=== PATIENT | male | born 1960 | race African-American/Black ===

== ENCOUNTER 2016-11-06 15:48 | Inpatient (IN) | payer OTHER ==
[~2016-11-06] VITALS: Ht 180.3 cm; Wt 76.2 kg
[2016-11-06] VITALS: BP 140/84
[~2016-11-06 15:48] MED LIST: ACETAMINOPHEN-1 EAC1 ORAL; ALBUTEROL SULF8.5 GM INH; HYDROCHLOROTHIA25 MG ORAL; LOSARTAN POTASS50 MG ORAL; METFORMIN HCL1000 M1 ORAL; METOPROLOL TAR100 MG ORAL; METOPROLOL TART50 MG ORAL; MIRALAX17 GM ORAL; NORCO 5-325 TA1 EACH ORAL; PREDNISONE20 MG ORAL; PROMETHAZINE-C118 M1 ORAL; STARLIX120 MG ORAL; STARLIX60 MG ORAL
[2016-11-06] MEDS: Morphine Sulfate 4mg/ml Inj IVP ONE ×3 (16:47→17:40)
[2016-11-06 18:09] VITALS: BP 140/91
[2016-11-06] MEDS ORDERED: Morphine Sulfate 4mg/ml Inj IM ONE (18:30)
[2016-11-06 20:14] VITALS: BP 141/80
[2016-11-06] MEDS ORDERED: Miralax 17gm pkt ORAL PRN (21:15)
[2016-11-06] MEDS ORDERED: Nitroglycerin Subl 0.4mg tab (Bottle Of 25) SL PRN (21:15)
[2016-11-06] MEDS ORDERED: Mylanta II UD 30ml ORAL PRN (21:15)
[2016-11-06 21:52] VITALS: BP 136/86
[2016-11-06] MEDS: D5 1/2NS 1,000 ML IV SCH (22:00)
[2016-11-06] MEDS: Heparin 5000 units/ml inj SUBQ SCH (22:00)
--- NOTE | 2016-11-06 22:28 | Emergency Room Report ---
History of Present Illness General Chief Complaint: Sore Throat Source: Patient, Family Member Present Illness HPI 56-year-old male presents ED for evaluation. Patient states he had endoscopy done today at [facility]. Patient states he's having a lot of throat pain since the endoscopy. Family at bedside states that patient had a very narrow esophagus required dilation. Pain is sharp. 10 out of 10. Radiating down the esophagus. Worse with swallowing. Denies chest pain or shortness of breath. Denies fevers or chills. Dr. Sexton performed the endoscopy today. No other aggravating or relieving factors. Denies any other associated symptoms Allergies: Coded Allergies: No Known Allergies (Unverified , 06/17/14) Patient History Past Medical History: DM, HTN, CVA/TIA Past Surgical History: other - gtube Pertinent Family History: none Social History: Denies: alcohol use, drug use, smoking Immunizations: UTD Reviewed Nursing Documentation: PMH: Agreed, PSxH: Agreed Nursing Documentation-PMH Hx Hypertension: Yes Hx Asthma: Yes Hx Diabetes: Yes Hx Cancer: No Hx Gastrointestinal Problems: Yes - Appendectomy in November 2014 Hx Neurological Problems: No Review of Systems All Other Systems: negative except mentioned in HPI Physical Exam Vital Signs Date Time Temp Pulse Resp B/P Pulse Ox O2 Delivery O2 Flow Rate FiO2 11/06/ 15:42 98.1 94 18 162/100 95 Room Air Sp02 EP Interpretation: reviewed, normal General Appearance: no apparent distress, alert, GCS 15, non-toxic, thin Head: normocephalic Eyes: bilateral eye PERRL, bilateral eye normal inspection ENT: hearing grossly normal, normal pharynx, no angioedema, normal voice Neck: full range of motion, supple/symm/no masses Respiratory: chest non-tender, lungs clear, normal breath sounds, speaking full sentences Cardiovascular #1: regular rate, rhythm, no edema Gastrointestinal: normal bowel sounds, non tender, soft, non-distended, no guarding, no rebound, other - Gtube Rectal: deferred Genitourinary: no CVA tenderness Musculoskeletal: normal inspection Neurologic: alert, oriented x3, responsive, motor strength/tone normal, sensory intact, speech normal Psychiatric: normal inspection Skin: normal inspection Lymphatic: normal inspection Medical Decision Making Diagnostic Impression: Primary Impression: S/P endoscopy Additional Impressions: Dysphagia Qualified Codes: R13.10 - Dysphagia, unspecified Weakness ER Course 56-year-old male presents ED complaining of throat pain after endoscopy today Differential-esophagitis, postoperative pain, perforation Patient placed on stretcher. After initial history and physical I ordered labs , pain medications, IV fluids, CT chest and esophagram Patient was unable to tolerate swallowing for esophagram. Study could not be completed CT chest shows no evidence of perforation I discussed case with Dr. Sexton performed the endoscopy today. States that there were several strictures which he had to dilate. Patient has history of CVA and has a G-tube in place. Discussed case with family requested patient to be admitted for IV fluids. patient is unable to tolerate by mouth intake for several days and feels very weak. Patient is very difficult IV access. I placed a peripheral EJ line. Patient is refusing blood draw after multiple previous attempts made. Patient given IV fluids. Case discussed with Dr. otero who has seen patient in the past and agrees to consult Case discussed with Dr. Corea and he agreed to admit the patient to his service for further care and support Diagnoses-status post endoscopy, dysphagia, weakness Admitted to floor in serious condition CT/MRI/US Diagnostic Results CT/MRI/US Diagnostic Results : Imaging Test Ordered: CT Chest Impression no evidence of perforation or extravasation Last Vital Signs Date Time Temp Pulse Resp B/P Pulse Ox O2 Delivery O2 Flow Rate FiO2 11/06/16 21:52 98.2 100 20 136/86 97 Room Air Status: improved Disposition: ADMITTED INPATIENT Condition: Serious Referrals: [facility],REFERRING (PCP) SUSAN HUMPHRIES M.D. Nov 06, 2016 22:28
[2016-11-06 22:45] LABS: APPEARANCE,URINE SLIGHTLY CLOUDY; KETONES,URINE 4+ (NEGATIVE); LEUKOCYTE ESTERASE ,URINE 1+ (NEGATIVE); NITRITE,URINE NEGATIVE (NEGATIVE); PH,URINE 5 (4.5-8.0); PROTEIN,URINE 3+ (NEGATIVE); UROBILINOGEN,URINE 4 MG/DL (0.0-1.0)
[2016-11-06 23:18] LABS: AMORPHOUS SEDIMENT,UR MODERATE /LPF; BACTERIA,URINE MODERATE /HPF; ICTOTEST NEGATIVE; RBC,URINE 0-2 /HPF (0 - 0)
[2016-11-07] VITALS: BP 140/84
[2016-11-07] MEDS: Morphine Sulfate 2mg/ml Inj IVP PRN ×3 (00:18→10:20)
[2016-11-07 04:00] VITALS: BP 131/72
[2016-11-07] MEDS: NovoLOG Insulin Flexpen SUBQ SCH ×4 (06:30→21:00)
[2016-11-07 08:00] VITALS: BP 144/98
[2016-11-07] MEDS: D5 1/2NS 1,000 ML IV SCH ×2 (09:27→21:40)
[2016-11-07] MEDS: Heparin 5000 units/ml inj SUBQ SCH ×2 (09:27→21:00)
--- NOTE | 2016-11-07 10:25 | Diagnostic Imaging Report ---
Clinical Indication: PAIN, chest pain status post esophageal dilatation Technique: Spiral acquisitions obtained through the chest. No IV contrast utilized, referring physician request. Multiplanar reconstructions generated. Total dose length product 576 mGycm. CTDIvol(s) 12 mGy. Dose reduction achieved using automated exposure control Comparison: None Findings:There is a small amount of residual contrast in the esophagus from earlier esophagram. There is no evidence of contrast extravasation. However, air bubbles are seen within the mediastinum,, surrounding the esophagus but also more anteriorly adjacent to the superior vena cava and laterally adjacent to the inferior vena cava.. This is predominantly in the lower mediastinum. No extraluminal fluid collection or other findings to suggest abscess are demonstrated. There is thickening of the distal esophageal wall. There is also suggestion of a small sliding-type hiatal hernia. No mediastinal hilar mass or adenopathy. Normal heart size. There is a small pericardial effusion. Within the lingula, there are a few bronchiectatic bronchi, surrounded by some bronchial wall thickening and reticular opacities. Patchy groundglass opacities seen more inferiorly within the lingula. Scattered reticular and groundglass opacities are seen throughout the left lower lobe, predominantly near the base. The right is clear. Pleural spaces are clear. No axillary or chest wall mass or adenopathy. The thyroid is unremarkable. Limited images of the upper abdomen demonstrate a gastrostomy. Contrast from the earlier esophagram seen within the stomach. There is also dense contrast within the colon, presumably from an earlier outside study. The bones are unremarkable. Impression: Gas bubbles within the mediastinum, presumably indicates esophageal perforation secondary to recent esophageal endoscopic dilatation. However, there is no evidence of contrast extravasation from recent esophagram and no abnormal fluid collection or other findings to suggest abscess. Parenchymal opacities within the left lung, as described. Bronchiectasis in the lingula indicates likely chronic component. Reticulonodular and groundglass opacities are nonspecific, could indicate acute infectious or noninfectious inflammation, acute edema, or chronic postinflammatory changes. Correlation with clinical findings recommended The above findings represent a discrepancy from the preliminary report. Discrepant findings phoned to Dr. Corea at the time of interpretation Distal esophageal wall thickening and hiatal hernia, nonspecific, could indicate esophagitis, inflammation related to recent intervention, among other possibilities Small hiatal hernia Gastrostomy The CT scanner at [facility] is accredited by the [employer] and the scans are performed using protocols designed to limit radiation exposure to as low as reasonably achievable to attain images of sufficient resolution adequate for diagnostic evaluation.
--- NOTE | 2016-11-07 11:50 | Diagnostic Imaging Report ---
Indication: Abdominal pain Technique: Bagley-scale and duplex images of the upper abdomen were obtained Comparison: Reference made to abdomen pelvis CT 11/30/2014 Findings: . Gallbladder is unremarkable, without stones, wall thickening, nor pericholecystic fluid. Sonographic Browning's sign is negative. Common bile duct measures 6 mm in diameter. No intrahepatic biliary ductal dilatation. Liver demonstrates normal echogenicity, no focal abnormality. Portal vein and hepatic veins are patent.. Pancreas is unremarkable except for mild ectasia of the pancreatic duct. Spleen is unremarkable. Left kidney measures 11.1 cm in length. Right kidney measures 9.7 cm length. Both kidneys demonstrate normal echogenicity. There is no hydronephrosis. No focal abnormality. . Non-aneurysmal abdominal aorta. Impression: Essentially unremarkable exam. Negative for gallstones or dilated ducts Nonspecific mild ectasia of the pancreatic duct, significance uncertain
[2016-11-07 12:02] VITALS: BP 162/93
[2016-11-07] MEDS ORDERED: Heparin 2000 units/Ns 1000ml INJ ONE (12:30)
[2016-11-07] MEDS ORDERED: Lidocaine 1% Plain 30 ml INJ ONE (12:30)
--- NOTE | 2016-11-07 12:30 | Diagnostic Imaging Report ---
Indication: PAIN, status post esophageal dilatation Technique: Rapid sequence photospot images during ingestion of water soluble contrast Total fluoroscopy time 0.9 minutes. Total dose area product 298 dGycm2 Comparison: None Findings: Exam is very limited, as only single image fired prepping the first swallow, and second swallow was mistimed. Patient did not wish to ingest any further contrast. No gross contrast extravasation is evident. There is a small sliding-type hiatal hernia Impression: Limited, essentially nondiagnostic exam.
[2016-11-07] MEDS ORDERED: Morphine Sulfate 4mg/ml Inj IVP PRN ×2 (13:15→18:00)
[2016-11-07] MEDS ORDERED: Sodium Bicarbonate 8.4% 50ml Inj IV ONE (15:00)
--- NOTE | 2016-11-07 15:56 | History and Physical ---
History of Present Illness General Date patient seen: Nov 07, 2016 Reason for Hospitalization: Sore Throat Present Illness HPI 56-year-old male with esophageal restrictions presented to ED for evaluation because of possible esophageal perforation Patient states he's having a lot of throat pain since the endoscopy the day prior. Family at bedside states that patient had a very narrow esophagus required dilation. Pain is sharp. 10 out of 10. Radiating down the esophagus. Pt is admitted for further evaluation Allergies: Coded Allergies: No Known Allergies (Unverified , 06/17/14) Medication History Scheduled Hydrochlorothiazide* (Hydrochlorothiazide*), 25 MG ORAL DAILY, (Reported) Losartan Potassium* (Losartan Potassium*), 50 MG ORAL DAILY, (Reported) Metformin Hcl* (Metformin Hcl*), 1,000 MG ORAL EVERY 2 HOURS, (Reported) Discontinued Medications Acetaminophen With Codeine (T#3) (Tylenol #3 Tab*), 1 TAB ORAL Q4H PRN for For Pain Discontinued Reason: Therapy completed Albuterol Sulfate* (Albuterol Sulfate Mdi*), 2 PUFF INH Q4H PRN for cough/ wheezing Discontinued Reason: Therapy completed Albuterol Sulfate* (Albuterol Sulfate Mdi*), 2 PUFF INH Q3H Discontinued Reason: Therapy completed Codeine/Promethazine Hcl* (Promethazine-Codeine Syrup*), 5 ML ORAL Q6H PRN for For Cough Discontinued Reason: Therapy completed Hydrochlorothiazide* (Hydrochlorothiazide*), 25 MG ORAL DAILY Discontinued Reason: Therapy completed Losartan Potassium* (Losartan Potassium*), 50 MG ORAL DAILY Discontinued Reason: Therapy completed Metoprolol Tartrate* (Metoprolol Tartrate*), 75 MG ORAL Q12HR Discontinued Reason: Therapy completed Metoprolol Tartrate* (Metoprolol Tartrate*), 200 MG ORAL EVERY 12 HOURS Discontinued Reason: Therapy completed Nateglinide (Starlix), 60 MG ORAL TIAC Discontinued Reason: Therapy completed Nateglinide* (Starlix*), 60 MG ORAL THREE TIMES A DAY Discontinued Reason: Therapy completed Prednisone* (Prednisone*), 40 MG ORAL DAILY Discontinued Reason: Therapy completed Patient History Healthcare decision maker NONE Resuscitation status Full Code Advanced Directive on File Past Medical/Surgical History Past Medical/Surgical History: (1) S/P endoscopy (2) HTN (hypertension) (3) Diabetes mellitus Review of Systems All Other Systems: negative except mentioned in HPI Physical Exam General Appearance: WD/WN Lines, tubes and drains: peripheral HEENT: normocephalic Neck: non-tender Respiratory/Chest: chest wall non-tender Cardiovascular/Chest: normal peripheral pulses Abdomen: normal bowel sounds Genitourinary/Rectal: normal genital exam Extremities: normal range of motion Skin Exam: normal pigmentation Last 24 Hour Vital Signs Date Time Temp Pulse Resp B/P Pulse Ox O2 Delivery O2 Flow Rate FiO2 11/07/16 12:02 97.8 96 18 162/93 97 Room Air 11/07/16 08:00 97.0 104 18 144/98 93 Room Air 11/07/16 06:57 96.9 11/07/16 04:00 96.9 89 16 131/72 97 Room Air 11/07/16 00:00 97.7 100 19 140/84 93 Room Air 11/06/16 21:53 98.2 100 20 136/86 97 Room Air 11/06/16 21:52 98.2 100 20 136/86 97 Room Air 11/06/16 20:14 98.2 100 20 141/80 97 Room Air 11/06/16 18:09 109 20 140/91 97 Room Air Intake and Output 11/06/16 11/07/16 19:00 07:00 Intake Total 0 ml 1100 ml Output Total 125 ml Balance 0 ml 975 ml Intake Oral 0 ml IV Total 1100 ml Output Urine Total 125 ml # Voids 1 # Bowel Movements 1 Laboratory Tests Test 11/06/16 22:15 Urine Color Brown Urine Appearance Slightly cloudy Urine pH 5 (4.5-8.0) Urine Specific [place] 1.025 (1.005-1.035) Urine Protein 3+ (NEGATIVE) H Urine Glucose (UA) Negative (NEGATIVE) Urine Ketones 4+ (NEGATIVE) H Urine Occult Blood Negative (NEGATIVE) Urine Nitrite Negative (NEGATIVE) Urine Bilirubin 2+ (NEGATIVE) H Urine Ictotest Negative Urine Urobilinogen 4 MG/DL (0.0-1.0) H Urine Leukocyte Esterase 1+ (NEGATIVE) H Urine RBC 0-2 /HPF (0 - 0) H Urine WBC 2-4 /HPF (0 - 0) Urine Squamous Epithelial Cells None /LPF (NONE/OCC) Urine Amorphous Sediment Moderate /LPF (NONE) H Urine Bacteria Moderate /HPF (NONE) H Height (Feet): 5 Height (Inches): 11.00 Weight (Pounds): 168 Medications Current Medications Medications (Trade) Dose Ordered Sig/Eda Route PRN Reason Start Time Stop Time Status Last Admin Dose Admin Acetaminophen (Tylenol) 650 mg Q4H PRN ORAL fever 11/06/16 21:15 12/06/16 21:14 Al Hydroxide/Mg Hydroxide (Mylanta II) 30 ml Q6H PRN ORAL dyspepsia 11/06/16 21:15 12/06/16 21:14 Dextrose (Dextrose 50%) STAT PRN IV Hypoglycemia 11/06/16 21:15 12/06/16 21:14 Dextrose/Sodium Chloride (D5 0.45% NS) 1,000 ml @ 75 mls/hr [id number] IV 11/06/16 22:00 12/06/16 21:59 11/07/16 09:27 Diphenhydramine HCl (Benadryl) 25 mg Q6H PRN ORAL Itching/Pruritis 11/06/16 21:15 12/06/16 21:14 Heparin Sodium (Porcine) (Heparin 5000 units/ml) 5,000 units EVERY 12 HOURS SUBQ 11/06/16 22:00 12/06/16 21:59 11/07/16 09:27 Insulin Aspart (NovoLOG) BEFORE MEALS AND HS SUBQ 11/07/16 06:30 12/07/16 06:29 Morphine Sulfate (Morphine Sulfate) 4 mg Q3H PRN IVP severe Pain (Pain Scale 7-10) 11/07/16 18:00 11/14/16 17:59 Nitroglycerin (Ntg) 0.4 mg Q5M X 3 DOSES PRN SL Prn Chest Pain 11/06/16 21:15 12/06/16 21:14 Ondansetron HCl (Zofran) 4 mg Q6H PRN IVP Nausea & Vomiting 11/06/16 21:15 12/06/16 21:14 11/07/16 09:26 Polyethylene Glycol (Miralax) 17 gm HSPRN PRN ORAL Constipation 11/06/16 21:15 12/06/16 21:14 Temazepam (Restoril) 15 mg HSPRN PRN ORAL Insomnia 11/06/16 21:15 11/13/16 21:14 Assessment/Plan Problem List: (1) Esophageal perforation ICD Codes: K22.3 - Perforation of esophagus SNOMED: 19090127 (2) HTN (hypertension) ICD Codes: I10 - Essential (primary) hypertension SNOMED: 18236275 (3) Diabetes mellitus ICD Codes: E11.9 - Type 2 diabetes mellitus without complications SNOMED: 06719688 Assessment/Plan npo f/u by GI symptomatic treatment POLINA CRAWFORD Nov 07, 2016 15:56
--- NOTE | 2016-11-07 16:27 | GI Initial Consult Note ---
History of Present Illness General Date patient seen: Nov 07, 2016 Time patient seen: 16:06 Reason for Hospitalization: Sore Throat Referring physician: POLINA CUENCA Reason for Consultation: VOMITTING Present Illness HPI 56-year-old male presents ED for evaluation. Patient states he had endoscopy done today at [facility]. Patient states he's having a lot of throat pain since the endoscopy. Family at bedside states that patient had a very narrow esophagus required dilation. Pain is sharp. 10 out of 10. Radiating down the esophagus. Worse with swallowing. Denies chest pain or shortness of breath. Denies fevers or chills. Dr. Sexton performed the endoscopy today. No other aggravating or relieving factors. Denies any other associated symptoms GI CONSULT: HPI as noted above. GI consulted for esophageal soreness/pain. Pt seen on floor, c/o of pain 10/ constantly requesting pain medication. This patient GT patient with trach. Strict NPO at this time. APCT revealed possible esophageal perforation from dilation recently. He presents to the floor c/o of persistent pain. Has refused all lab draws and most of care. Home Meds Reported Medications Hydrochlorothiazide* (HYDROCHLOROTHIAZIDE*) 25 Mg Tablet, 25 MG ORAL DAILY, TAB 11/30/14 Losartan Potassium* (LOSARTAN POTASSIUM*) 50 Mg Tablet, 50 MG ORAL DAILY, TAB 11/30/14 Metformin Hcl* (METFORMIN HCL*) 1,000 Mg Tablet, 1000 MG ORAL EVERY 2 HOURS, TAB 11/30/14 Discontinued Scripts Codeine/Promethazine Hcl* (PROMETHAZINE-CODEINE SYRUP*) 118 Ml Syrup, 5 ML ORAL Q6H Y for For Cough, #118 ML Prov:Amber Michel.A. 02/28/16 Albuterol Sulfate* (ALBUTEROL SULFATE MDI*) 8.5 Gm Hfa.aer.ad, 2 PUFF INH Q3H, # 1 INH 0 Refills Prov:Amber Michel P.A. 02/28/16 Prednisone* (PREDNISONE*) 20 Mg Tablet, 40 MG ORAL DAILY for 5 Days, TAB Prov:Amber Michel P.A. 02/28/16 Albuterol Sulfate* (ALBUTEROL SULFATE MDI*) 8.5 Gm Hfa.aer.ad, 2 PUFF INH Q4H Y for cough/wheezing, #1 EA Prov:EMILY COOK P.A. 02/18/15 Acetaminophen With Codeine (T#3) (TYLENOL #3 TAB*) 1 Each Tablet, 1 TAB ORAL Q4H Y for For Pain, #20 TAB Prov:LYUBOV COOKA P.A. 02/18/15 Metoprolol Tartrate* (METOPROLOL TARTRATE*) 100 Mg Tablet, 200 MG ORAL EVERY 12 HOURS, #120 TAB Prov:EMILY COOK P.A. 02/18/15 Nateglinide* (STARLIX*) 60 Mg Tablet, 60 MG ORAL THREE TIMES A DAY, #90 TAB Prov:EMILY COOK P.A. 02/18/15 Hydrochlorothiazide* (HYDROCHLOROTHIAZIDE*) 25 Mg Tablet, 25 MG ORAL DAILY, #30 TAB Prov:EMILY COOK P.A. 02/18/15 Losartan Potassium* (LOSARTAN POTASSIUM*) 50 Mg Tablet, 50 MG ORAL DAILY, #30 TAB Prov:LYUBOV COOKA P.A. 02/18/15 Nateglinide (Starlix) 120 Mg Tab, 60 MG ORAL TIAC, #90 TAB Prov:Edu (Ashley)Bri NP 12/08/14 Metoprolol Tartrate* (METOPROLOL TARTRATE*) 50 Mg Tab, 75 MG ORAL Q12HR, #60 TAB Prov:Bri Sorensen NP (Vanchtein) 12/08/14 Med list reviewed/reconciled: Yes Allergies: Coded Allergies: No Known Allergies (Unverified , 06/17/14) Patient History History Provided By: Patient - refusing to speak PMH Narrative unable to obtain, refusing to speak unless given pain medication Review of Systems All Other Systems: negative except mentioned in HPI Physical Exam Vital Signs Date Time Temp Pulse Resp B/P Pulse Ox O2 Delivery O2 Flow Rate FiO2 11/06/16 15:42 98.1 94 18 162/100 95 Room Air Sp02 EP Interpretation: reviewed Labs Laboratory Tests Test 11/06/16 22:15 Urine Color Brown Urine Appearance Slightly cloudy Urine pH 5 (4.5-8.0) Urine Specific [place] 1.025 (1.005-1.035) Urine Protein 3+ (NEGATIVE) H Urine Glucose (UA) Negative (NEGATIVE) Urine Ketones 4+ (NEGATIVE) H Urine Occult Blood Negative (NEGATIVE) Urine Nitrite Negative (NEGATIVE) Urine Bilirubin 2+ (NEGATIVE) H Urine Ictotest Negative Urine Urobilinogen 4 MG/DL (0.0-1.0) H Urine Leukocyte Esterase 1+ (NEGATIVE) H Urine RBC 0-2 /HPF (0 - 0) H Urine WBC 2-4 /HPF (0 - 0) Urine Squamous Epithelial Cells None /LPF (NONE/OCC) Urine Amorphous Sediment Moderate /LPF (NONE) H Urine Bacteria Moderate /HPF (NONE) H General Appearance: well appearing, no apparent distress, alert, thin Head: normocephalic EENT: normal ENT inspection Neck: full range of motion, supple Respiratory: normal breath sounds, no respiratory distress Cardiovascular: normal rate Gastrointestinal: soft Rectal: deferred Genitourinary: normal inspection Musculoskeletal: normal inspection, back normal Neurologic: normal inspection, alert, oriented x3, responsive Psychiatric: normal inspection, judgement/insight normal, memory normal Skin: normal inspection, normal color, no rash, warm/dry Lymphatic: normal inspection, no adenopathy Current Medications Current Medications Medications (Trade) Dose Ordered Sig/Eda Route PRN Reason Start Time Stop Time Status Last Admin Dose Admin Acetaminophen (Tylenol) 650 mg Q4H PRN ORAL fever 11/06/16 21:15 12/06/16 21:14 Al Hydroxide/Mg Hydroxide (Mylanta II) 30 ml Q6H PRN ORAL dyspepsia 11/06/16 21:15 12/06/16 21:14 Dextrose (Dextrose 50%) STAT PRN IV Hypoglycemia 11/06/16 21:15 12/06/16 21:14 Dextrose/Sodium Chloride (D5 0.45% NS) 1,000 ml @ 75 mls/hr [id number] IV 11/06/16 22:00 12/06/16 21:59 11/07/16 09:27 Diphenhydramine HCl (Benadryl) 25 mg Q6H PRN ORAL Itching/Pruritis 11/06/16 21:15 12/06/16 21:14 Heparin Sodium (Porcine) (Heparin 5000 units/ml) 5,000 units EVERY 12 HOURS SUBQ 11/06/16 22:00 12/06/16 21:59 11/07/16 09:27 Insulin Aspart (NovoLOG) BEFORE MEALS AND HS SUBQ 11/07/16 06:30 12/07/16 06:29 Morphine Sulfate (Morphine Sulfate) 4 mg Q3H PRN IVP severe Pain (Pain Scale 7-10) 11/07/16 16:15 11/14/16 16:14 Nitroglycerin (Ntg) 0.4 mg Q5M X 3 DOSES PRN SL Prn Chest Pain 11/06/16 21:15 12/06/16 21:14 Ondansetron HCl (Zofran) 4 mg Q6H PRN IVP Nausea & Vomiting 11/06/16 21:15 12/06/16 21:14 11/07/16 09:26 Polyethylene Glycol (Miralax) 17 gm HSPRN PRN ORAL Constipation 11/06/16 21:15 12/06/16 21:14 Temazepam (Restoril) 15 mg HSPRN PRN ORAL Insomnia 11/06/16 21:15 11/13/16 21:14 GI: Plan Problems: (1) Esophageal perforation (2) Dysphagia (3) Abdominal pain Plan CT Chest no Contrast reviewed >> Gas bubbles within the mediastinum, presumably indicates esophageal perforation secondary to recent esophageal endoscopic dilatation. However, there is no evidence of contrast extravasation from recent esophagram and no abnormal fluid collection or other findings to suggest abscess, see full report. Maintain STRICT NPO >> recommend thoracic surgeon consult fu chest Xray, consider repeat chest CT tomorrow. pt refused labs >> PICC to be placed pain mgmt fu labs Discussed with Dr. Mckeon. Thank you for referring this patient, we will follow. Martha Segundo N.P. Nov 07, 2016 16:27
--- NOTE | 2016-11-07 16:54 | Diagnostic Imaging Report ---
Indication: Shortness of breath Technique: One view of the chest Comparison: 11/30/2014 Findings: Lungs and pleural spaces are clear. Heart size is normal. Interim placement left arm PICC. Contrast is seen within the colon Impression: No acute process
--- NOTE | 2016-11-07 16:58 | Diagnostic Imaging Report ---
Indications: Needs long-term IV access Technique: Informed consent obtained prior to commencement of procedure. Procedure timeout performed. Ultrasound confirms patent compressible left brachial vein. Total sterile technique, including sterile probe cover and sterile gel, hat, mask,, sterile gown, large sterile drape, and preparation with 2% chlorhexidine utilized. Local anesthesia with 1% lidocaine. Under real-time ultrasound guidance, puncture brachial vein using 21-gauge needle, documented and archived, passage 0.018 guidewire under direct fluoroscopy, which was used to determine appropriate catheter length, exchange for 5 [place] peel-away sheath. 5 [place] Bard dual-lumen power PICC cut to 45 cm. It was inserted through the peel-away sheath. Peel-away sheath and guidewire removed. Catheter fixed to the skin. Both catheter ports aspirated and flushed. Patient tolerated procedure well, without immediate complication. Digital radiograph documents satisfactory catheter tip position, at the cavoatrial junction. Total fluoroscopy time 0.5 minutes. Total dose area product 9.5 dGycm2 Impression: Successful placement of PICC under sonographic and fluoroscopic guidance, as described above.
[2016-11-07 17:44] VITALS: BP 177/104
[2016-11-07 18:00] VITALS: BP 122/90
[2016-11-07] MEDS: Morphine Sulfate 4mg/ml Inj IVP PRN ×2 (18:42→21:42)
[2016-11-07 23:21] LABS: BASOPHILS % (AUTO) 0.7 % (0.0-2.0); EOSINOPHILS % (AUTO) 1.2 % (0.0-3.0); MEAN CORPUSCULAR HEMOGLOBIN 27.3 PG (27.0-31.0); MEAN CORPUSCULAR HGB CONC 32.7 G/DL (32.0-36.0); MEAN CORPUSCULAR VOLUME 84 FL (80-99); MEAN PLATELET VOLUME 6.7 FL (6.5-10.1); MONOCYTES % (AUTO) 12.1 % (1.0-10.0); NEUTROPHILS % (AUTO) 62.9 % (45.0-75.0); PLATELET COUNT 251 K/UL (150-450); RED BLOOD COUNT 5.24 M/UL (4.70-6.10); RED CELL DISTRIBUTION WIDTH 15.3 % (11.6-14.8)
[2016-11-07 23:29] LABS: TROPONIN I < 0.30 ng/mL (<=0.30)
[2016-11-07 23:30] LABS: ALANINE AMINOTRANSFERASE 9 U/L (3-41); ALBUMIN/GLOBULIN RATIO 1.2 (1.0-2.7); AMYLASE 114 U/L (10-110); ASPARTATE AMINO TRANSFERASE 11 U/L (5-40); CALCIUM 8.3 mg/dL (8.6-10.2); CARBON DIOXIDE 25 mEQ/L (20-30); CHLORIDE 97 mEQ/L (98-107); CREATININE 0.8 mg/dL (0.7-1.2); GLOMERULAR FILTRATION RATE > 60 mL/min (>60); HEMOLYSIS 4; SODIUM 139 mEQ/L (135-145); TOTAL PROTEIN 6.2 g/dL (6.6-8.7)
[2016-11-07 23:40] LABS: CKMB 1.8 ng/mL (< 6.7)
[2016-11-07 23:46] LABS: ANION GAP 17 (5-15)
[2016-11-08] VITALS: BP 167/121
[2016-11-08 00:11] LABS: POTASSIUM 2.6 mEQ/L (3.4-4.9)
[2016-11-08] MEDS: Morphine Sulfate 4mg/ml Inj IVP PRN ×7 (02:41→22:00)
[2016-11-08] MEDS: NovoLOG Insulin Flexpen SUBQ SCH ×4 (06:30→21:00)
[2016-11-08 08:00] VITALS: BP 185/110
[2016-11-08] MEDS: Heparin 5000 units/ml inj SUBQ SCH ×2 (08:56→21:00)
[2016-11-08 09:00] VITALS: BP 161/114
--- NOTE | 2016-11-08 11:35 | Diagnostic Imaging Report ---
Clinical Indication: Pain, status post esophageal stricture dilatation, abnormal recent chest CT Technique: Spiral acquisitions obtained through the chest. No IV contrast utilized, per referring physician request. Multiplanar reconstructions generated. Total dose length product 596 mGycm. CTDIvol(s) 14 mGy. Dose reduction achieved using automated exposure control Comparison: 11/06/2016 Findings:Previously administered esophageal contrast is now within the colon. Again demonstrated is a small sliding-type hernia, and mild thickening of the distal esophageal wall. An extraluminal gas bubble is seen adjacent to the esophagus just lateral to the left mainstem bronchus. A second extraluminal gas bubble is seen posterior to the esophagus at the level of the scarlett. This is the only extraluminal gas currently seen within the mediastinum, and the overall amount of mediastinal gas is significantly decreased from the previous exam. However, multiple gas bubbles are seen in the right supraclavicular region and lower neck, extending beyond the imaging volume. These are fairly superficial, located superficial and posterior to the sternocleidomastoid muscle. These are not evident previously. No mediastinal fluid collections are evident. No evidence of infiltration of the subcutaneous fat of the lower chest wall which is increased from previous study Secretions are now seen within the right mainstem bronchus. Previously demonstrated left lower lobe parenchymal opacities have largely cleared, with only a few extremely faint subtle groundglass opacities persisting. Focal lingular bronchiectasis and bronchial wall thickening persists, unchanged. No new infiltrates. No effusions. There is been interim placement of a left arm PICC. The tip projects at the level of the high right atrium. No mediastinal or hilar mass or adenopathy. Normal heart size. No pericardial effusion. No axillary or chest wall mass or adenopathy.. There is very mild edema of the subcutaneous fat of the lower chest wall The upper abdomen demonstrates a gastrostomy tube in satisfactory position. As mentioned earlier, there is dense contrast in the colon, streak artifact from which could obscure abdominal pathology. The bones are unremarkable. Impression: Since previous study of 2 days earlier, previously described mediastinal gas as largely resolved, with only 2 residual tiny extraluminal gas bubbles in the mediastinum. There is new finding of gas in the right neck. As this is remote from the esophagus, suspect that this represents previous mediastinal gas that has dissected cephalad. Other etiologies, such as recent trauma to that area not excludable. Infection with gas-forming organism is a much less likely etiology, given the absence of any other associated inflammatory changes No evidence of mediastinal abscess or active esophageal leakage Marked improvement, since earlier study, of parenchymal disease in the left lung. 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
--- NOTE | 2016-11-08 11:47 | GI Progress Note ---
Assessment/Plan Problems: (1) Diabetes mellitus ICD Codes: E11.9 - Type 2 diabetes mellitus without complications SNOMED: 50817521 (2) Abdominal pain ICD Codes: R10.9 - Unspecified abdominal pain SNOMED: 60897463 (3) Esophageal perforation ICD Codes: K22.3 - Perforation of esophagus SNOMED: 49030151 (4) Dysphagia ICD Codes: R13.10 - Dysphagia, unspecified SNOMED: 97586138, 063241884 Qualifiers: Qualified Codes: R13.10 - Dysphagia, unspecified Status: unchanged Status Narrative Discussed with Dr. Mckeon. Assessment/Plan 11-06-16 CT Chest no Contrast reviewed >> Gas bubbles within the mediastinum, presumably indicates esophageal perforation secondary to recent esophageal endoscopic dilatation. However, there is no evidence of contrast extravasation from recent esophagram and no abnormal fluid collection or other findings to suggest abscess, see full report. 11-08-[address] Chest non con today - Since previous study of 2 days earlier, previously described mediastinal gas as largely resolved, with only 2 residual tiny extraluminal gas bubbles in the mediastinum. There is new finding of gas in the right neck. As this is remote from the esophagus, suspect that this represents previous mediastinal gas that has dissected cephalad. No evidence of mediastinal abscess or active esophageal leakage. Maintain STRICT NPO + IVFs ordered esophagram with Gastrografin to evaluate leakage pain mgmt fu labs Subjective Subjective refusing to answer questions wants pain meds Objective Last 24 Hour Vital Signs Date Time Temp Pulse Resp B/P Pulse Ox O2 Delivery O2 Flow Rate FiO2 11/08/16 09:00 103 161/114 11/08/16 08:00 97.7 102 18 185/110 92 Room Air 11/08/16 07:29 97.7 11/08/16 00:00 97.7 96 18 167/121 97 Room Air 11/07/16 18:00 102 122/90 11/07/16 17:44 97.7 77 18 177/104 94 Room Air 11/07/16 12:02 97.8 96 18 162/93 97 Room Air Intake and Output 11/07/16 11/08/16 19:00 07:00 Intake Total 825 ml 400 ml Balance 825 ml 400 ml IV Total 825 ml 400 ml # Voids 3 1 Laboratory Tests Test 11/07/16 23:00 White Blood Count 12.0 K/UL (4.8-10.8) H Red Blood Count 5.24 M/UL (4.70-6.10) Hemoglobin 14.3 G/DL (14.2-18.0) Hematocrit 43.7 % (42.0-52.0) Mean Corpuscular Volume 84 FL (80-99) Mean Corpuscular Hemoglobin 27.3 PG (27.0-31.0) Mean Corpuscular Hemoglobin Concent 32.7 G/DL (32.0-36.0) Red Cell Distribution Width 15.3 % (11.6-14.8) H Platelet Count 251 K/UL (150-450) Mean Platelet Volume 6.7 FL (6.5-10.1) Neutrophils (%) (Auto) 62.9 % (45.0-75.0) Lymphocytes (%) (Auto) 23.0 % (20.0-45.0) Monocytes (%) (Auto) 12.1 % (1.0-10.0) H Eosinophils (%) (Auto) 1.2 % (0.0-3.0) Basophils (%) (Auto) 0.7 % (0.0-2.0) Activated Partial Thromboplast Time 30 SEC (23-33) Sodium Level 139 mEQ/L (135-145) Potassium Level 2.6 mEQ/L (3.4-4.9) *L Chloride Level 97 mEQ/L (98-107) L Carbon Dioxide Level 25 mEQ/L (20-30) Anion Gap 17 (5-15) H Blood Urea Nitrogen 12 mg/dL (7-23) Creatinine 0.8 mg/dL (0.7-1.2) Estimat Glomerular Filtration Rate > 60 mL/min (>60) Glucose Level 684 mg/dL (74-106) *H Calcium Level 8.3 mg/dL (8.6-10.2) L Total Bilirubin 0.5 mg/dL (0.0-1.2) Aspartate Amino Transf (AST/SGOT) 11 U/L (5-40) Alanine Aminotransferase (ALT/SGPT) 9 U/L (3-41) Alkaline Phosphatase 48 U/L (40-129) Total Creatine Kinase 33 U/L (38-174) L Creatine Kinase MB 1.8 ng/mL (< 6.7) Creatine Kinase MB Relative Index 5.4 Troponin I < 0.30 ng/mL (<=0.30) Total Protein 6.2 g/dL (6.6-8.7) L Albumin 3.5 g/dL (3.5-5.2) Globulin 2.7 g/dL Albumin/Globulin Ratio 1.2 (1.0-2.7) Amylase Level 114 U/L (10-110) H Lipase 43 U/L (< 60) Height (Feet): 5 Height (Inches): 11.00 Weight (Pounds): 168 General Appearance: alert, thin Cardiovascular: normal rate Respiratory/Chest: no respiratory distress Abdominal Exam: soft Extremities: normal range of motion Martha Segundo N.P. Nov 08, 2016 11:47
[2016-11-08 12:00] VITALS: BP 160/108
[2016-11-08 16:00] VITALS: BP 150/109
--- NOTE | 2016-11-08 18:24 | Pulmonology Progress Note ---
Assessment/Plan Problems: (1) Esophageal perforation (2) HTN (hypertension) (3) Diabetes mellitus Assessment/Plan NPO CT scan reviewed, pneumomediastinum has grossly resolved Subjective ROS Limited/Unobtainable: No Interval Events: feeling better Allergies: Coded Allergies: No Known Allergies (Unverified , 06/17/14) Objective Last 24 Hour Vital Signs Date Time Temp Pulse Resp B/P Pulse Ox O2 Delivery O2 Flow Rate FiO2 11/08/16 16:00 96.8 115 20 150/109 96 Room Air 11/08/16 12:00 98.9 99 18 160/108 93 Room Air 11/08/16 09:00 103 161/114 11/08/16 08:00 97.7 102 18 185/110 92 Room Air 11/08/16 07:29 97.7 11/08/16 00:00 97.7 96 18 167/121 97 Room Air Intake and Output 11/07/16 11/08/16 19:00 07:00 Intake Total 825 ml 400 ml Balance 825 ml 400 ml IV Total 825 ml 400 ml # Voids 3 1 Objective General Appearance: WD/WN HEENT: normocephalic Respiratory/Chest: chest wall non-tender, lungs clear Cardiovascular: normal peripheral pulses, normal rate Abdomen: normal bowel sounds Genitourinary: normal external genitalia Microbiology Date/Time Source Procedure Growth Status 11/06/16 22:15 Urine,Clean Catch Urine Culture - Preliminary Mixed Gram Positive Organism Resulted Laboratory Tests 11/07/16 23:00: White Blood Count 12.0H, Red Blood Count 5.24, Hemoglobin 14.3, Hematocrit 43.7 , Mean Corpuscular Volume 84, Mean Corpuscular Hemoglobin 27.3, Mean Corpuscular Hemoglobin Concent 32.7, Red Cell Distribution Width 15.3H, Platelet Count 251, Mean Platelet Volume 6.7, Neutrophils (%) (Auto) 62.9, Lymphocytes (%) (Auto) 23.0, Monocytes (%) (Auto) 12.1H, Eosinophils (%) (Auto) 1.2, Basophils (%) (Auto) 0.7, Activated Partial Thromboplast Time 30, Sodium Level 139, Potassium Level 2.6*L, Chloride Level 97L, Carbon Dioxide Level 25, Anion Gap 17H, Blood Urea Nitrogen 12, Creatinine 0.8, Estimat Glomerular Filtration Rate > 60, Glucose Level 684*H, Calcium Level 8.3L, Total Bilirubin 0.5, Aspartate Amino Transf (AST/SGOT) 11, Alanine Aminotransferase (ALT/SGPT) 9 , Alkaline Phosphatase 48, Total Creatine Kinase 33L, Creatine Kinase MB 1.8, Creatine Kinase MB Relative Index 5.4, Troponin I < 0.30, Total Protein 6.2L, Albumin 3.5, Globulin 2.7, Albumin/Globulin Ratio 1.2, Amylase Level 114H, Lipase 43 Current Medications Medications (Trade) Dose Ordered Sig/Eda Route PRN Reason Start Time Stop Time Status Last Admin Dose Admin Acetaminophen (Tylenol) 650 mg Q4H PRN ORAL fever 11/06/16 21:15 12/06/16 21:14 Al Hydroxide/Mg Hydroxide (Mylanta II) 30 ml Q6H PRN ORAL dyspepsia 11/06/16 21:15 12/06/16 21:14 Clonidine HCl (Catapres) 0.1 mg Q6H PRN ORAL SBP >160 11/08/16 01:15 12/08/16 01:14 Dextrose STAT PRN IV Hypoglycemia 11/06/16 21:15 12/06/16 21:14 Diphenhydramine HCl (Benadryl) 25 mg Q6H PRN ORAL Itching/Pruritis 11/06/16 21:15 12/06/16 21:14 Heparin Sodium (Porcine) (Heparin 5000 units/ml) 5,000 units EVERY 12 HOURS SUBQ 11/06/16 22:00 12/06/16 21:59 11/08/16 08:56 Insulin Aspart (NovoLOG) BEFORE MEALS AND HS SUBQ 11/07/16 06:30 12/07/16 06:29 Morphine Sulfate (Morphine Sulfate) 6 mg Q3H PRN IVP Severe Pain (Pain Scale 7-10) 11/08/16 12:30 11/15/16 12:29 11/08/16 15:46 Nitroglycerin (Ntg) 0.4 mg Q5M X 3 DOSES PRN SL Prn Chest Pain 11/06/16 21:15 12/06/16 21:14 Ondansetron HCl (Zofran) 4 mg Q6H PRN IVP Nausea & Vomiting 11/06/16 21:15 12/06/16 21:14 11/08/16 08:54 Polyethylene Glycol (Miralax) 17 gm HSPRN PRN ORAL Constipation 11/06/16 21:15 12/06/16 21:14 Sodium Chloride (0.45% NS 1000ml) 1,000 ml @ 75 mls/hr [id number] IV 11/08/16 00:15 12/08/16 00:14 11/08/16 00:39 Temazepam (Restoril) 15 mg HSPRN PRN ORAL Insomnia 11/06/16 21:15 11/13/16 21:14 POLINA CRAWFORD Nov 08, 2016 18:24
[2016-11-08 20:00] VITALS: BP 149/106
[2016-11-09] VITALS: BP 143/107
[2016-11-09 04:04] VITALS: BP 132/92
[2016-11-09] MEDS: NovoLOG Insulin Flexpen SUBQ SCH ×4 (06:09→21:00)
[2016-11-09 07:11] LABS: BASOPHILS % (AUTO) 0.5 % (0.0-2.0); EOSINOPHILS % (AUTO) 0.6 % (0.0-3.0); LYMPHOCYTES % (AUTO) 18.8 % (20.0-45.0); MEAN CORPUSCULAR HEMOGLOBIN 25.4 PG (27.0-31.0); MEAN CORPUSCULAR HGB CONC 30.3 G/DL (32.0-36.0); MEAN CORPUSCULAR VOLUME 84 FL (80-99); MEAN PLATELET VOLUME 7.5 FL (6.5-10.1); MONOCYTES % (AUTO) 11.8 % (1.0-10.0); NEUTROPHILS % (AUTO) 68.4 % (45.0-75.0); PLATELET COUNT 262 K/UL (150-450); RED BLOOD COUNT 5.81 M/UL (4.70-6.10); RED CELL DISTRIBUTION WIDTH 15.8 % (11.6-14.8); WHITE BLOOD COUNT 13.1 K/UL (4.8-10.8)
[2016-11-09] MEDS: Morphine Sulfate 4mg/ml Inj IVP PRN ×5 (07:43→22:19)
[2016-11-09 07:49] LABS: ANION GAP 21 (5-15); CALCIUM 10.1 mg/dL (8.6-10.2); CARBON DIOXIDE 24 mEQ/L (20-30); CHLORIDE 103 mEQ/L (98-107); CREATININE 0.8 mg/dL (0.7-1.2); GLOMERULAR FILTRATION RATE > 60 mL/min (>60); HEMOLYSIS 3; POTASSIUM 3.5 mEQ/L (3.4-4.9); SODIUM 148 mEQ/L (135-145)
[2016-11-09] MEDS: Heparin 5000 units/ml inj SUBQ SCH ×2 (07:58→21:00)
[2016-11-09 08:37] VITALS: BP 162/101
--- NOTE | 2016-11-09 11:00 | GI Progress Note ---
Assessment/Plan Problems: (1) Diabetes mellitus ICD Codes: E11.9 - Type 2 diabetes mellitus without complications SNOMED: 60207330 (2) Abdominal pain ICD Codes: R10.9 - Unspecified abdominal pain SNOMED: 14391264 (3) Esophageal perforation ICD Codes: K22.3 - Perforation of esophagus SNOMED: 05504207 (4) Dysphagia ICD Codes: R13.10 - Dysphagia, unspecified SNOMED: 17353567, 209352557 Qualifiers: Qualified Codes: R13.10 - Dysphagia, unspecified Status: unchanged Status Narrative Discussed with Dr. Mckeon. Assessment/Plan 11-06-16 CT Chest no Contrast reviewed >> Gas bubbles within the mediastinum, presumably indicates esophageal perforation secondary to recent esophageal endoscopic dilatation. However, there is no evidence of contrast extravasation from recent esophagram and no abnormal fluid collection or other findings to suggest abscess, see full report. 11-08-[address] Chest non con today - Since previous study of 2 days earlier, previously described mediastinal gas as largely resolved, with only 2 residual tiny extraluminal gas bubbles in the mediastinum. There is new finding of gas in the right neck. As this is remote from the esophagus, suspect that this represents previous mediastinal gas that has dissected cephalad. No evidence of mediastinal abscess or active esophageal leakage. Maintain STRICT NPO + IVFs fu esophagram with Gastrografin to evaluate leakage pain mgmt fu labs Subjective Subjective throat pain Objective Last 24 Hour Vital Signs Date Time Temp Pulse Resp B/P Pulse Ox O2 Delivery O2 Flow Rate FiO2 11/09/16 08:37 97.8 111 20 162/101 95 Room Air 11/09/16 08:13 97.8 11/09/16 04:04 98.1 105 19 132/92 87 Room Air 11/09/16 00:00 98.1 110 19 143/107 97 Room Air 11/08/16 20:00 97.9 101 20 149/106 94 Room Air 11/08/16 16:00 96.8 115 20 150/109 96 Room Air 11/08/16 12:00 98.9 99 18 160/108 93 Room Air Intake and Output 11/08/16 11/09/16 19:00 07:00 Intake Total 850 ml 600 ml Output Total 300 ml Balance 850 ml 300 ml IV Total 850 ml 600 ml Output Urine Total 300 ml # Voids 3 1 # Bowel Movements 1 Laboratory Tests Test 11/09/16 05:00 White Blood Count 13.1 K/UL (4.8-10.8) H Red Blood Count 5.81 M/UL (4.70-6.10) Hemoglobin 14.8 G/DL (14.2-18.0) Hematocrit 48.8 % (42.0-52.0) Mean Corpuscular Volume 84 FL (80-99) Mean Corpuscular Hemoglobin 25.4 PG (27.0-31.0) L Mean Corpuscular Hemoglobin Concent 30.3 G/DL (32.0-36.0) L Red Cell Distribution Width 15.8 % (11.6-14.8) H Platelet Count 262 K/UL (150-450) Mean Platelet Volume 7.5 FL (6.5-10.1) Neutrophils (%) (Auto) 68.4 % (45.0-75.0) Lymphocytes (%) (Auto) 18.8 % (20.0-45.0) L Monocytes (%) (Auto) 11.8 % (1.0-10.0) H Eosinophils (%) (Auto) 0.6 % (0.0-3.0) Basophils (%) (Auto) 0.5 % (0.0-2.0) Sodium Level 148 mEQ/L (135-145) H Potassium Level 3.5 mEQ/L (3.4-4.9) Chloride Level 103 mEQ/L (98-107) Carbon Dioxide Level 24 mEQ/L (20-30) Anion Gap 21 (5-15) H Blood Urea Nitrogen 14 mg/dL (7-23) Creatinine 0.8 mg/dL (0.7-1.2) Estimat Glomerular Filtration Rate > 60 mL/min (>60) Glucose Level 110 mg/dL (74-106) #H Calcium Level 10.1 mg/dL (8.6-10.2) # Height (Feet): 5 Height (Inches): 11.00 Weight (Pounds): 168 General Appearance: no apparent distress, alert Cardiovascular: normal rate Respiratory/Chest: normal breath sounds, no respiratory distress Abdominal Exam: normal bowel sounds, non tender, soft, GT site - c/d/i Martha Segundo N.P. Nov 09, 2016 11:00
[2016-11-09 12:49] VITALS: BP 91/65
[2016-11-09] MEDS ORDERED: D5 1/2NS 1000ml IV ONE (13:07)
[2016-11-09] MEDS ORDERED: Tubing IV Secondary IV ONE (13:07)
[2016-11-09] MEDS ORDERED: 1/2 NS 1000ml IV ONE (13:07)
[2016-11-09 16:00] VITALS: BP 144/98
[2016-11-09] MEDS: Losartan 50mg tab GT SCH (17:20)
[2016-11-09 20:00] VITALS: BP 160/99
--- NOTE | 2016-11-09 22:14 | Pulmonology Progress Note ---
Assessment/Plan Problems: (1) Esophageal perforation (2) HTN (hypertension) (3) Diabetes mellitus Assessment/Plan NPO CT scan reviewed, pneumomediastinum has grossly resolved Subjective Allergies: Coded Allergies: No Known Allergies (Unverified , 06/17/14) Objective Last 24 Hour Vital Signs Date Time Temp Pulse Resp B/P Pulse Ox O2 Delivery O2 Flow Rate FiO2 11/09/16 20:00 97.9 106 20 160/99 95 Room Air 11/09/16 18:48 97.0 11/09/16 17:20 144/98 11/09/16 16:00 97.0 100 18 144/98 99 Room Air 11/09/16 12:49 97.0 112 21 91/65 96 Room Air 11/09/16 08:37 97.8 111 20 162/101 95 Room Air 11/09/16 04:04 98.1 105 19 132/92 87 Room Air 11/09/16 00:00 98.1 110 19 143/107 97 Room Air Intake and Output 11/08/16 11/09/16 19:00 07:00 Intake Total 850 ml 600 ml Output Total 300 ml Balance 850 ml 300 ml IV Total 850 ml 600 ml Output Urine Total 300 ml # Voids 3 1 # Bowel Movements 1 Objective General Appearance: WD/WN HEENT: normocephalic Respiratory/Chest: chest wall non-tender, lungs clear Cardiovascular: normal peripheral pulses, normal rate Abdomen: normal bowel sounds Genitourinary: normal external genitalia Microbiology Date/Time Source Procedure Growth Status 11/06/16 22:15 Urine,Clean Catch Urine Culture - Final Mixed Gram Positive Organism Complete Laboratory Tests 11/09/16 05:00: White Blood Count 13.1H, Red Blood Count 5.81, Hemoglobin 14.8, Hematocrit 48.8 , Mean Corpuscular Volume 84, Mean Corpuscular Hemoglobin 25.4L, Mean Corpuscular Hemoglobin Concent 30.3L, Red Cell Distribution Width 15.8H, Platelet Count 262, Mean Platelet Volume 7.5, Neutrophils (%) (Auto) 68.4, Lymphocytes (%) (Auto) 18.8L, Monocytes (%) (Auto) 11.8H, Eosinophils (%) (Auto ) 0.6, Basophils (%) (Auto) 0.5, Sodium Level 148H, Potassium Level 3.5, Chloride Level 103, Carbon Dioxide Level 24, Anion Gap 21H, Blood Urea Nitrogen 14, Creatinine 0.8, Estimat Glomerular Filtration Rate > 60, Glucose Level 110#H , Calcium Level 10.1# Current Medications Medications (Trade) Dose Ordered Sig/Eda Route PRN Reason Start Time Stop Time Status Last Admin Dose Admin Acetaminophen (Tylenol) 650 mg Q4H PRN ORAL fever 11/06/16 21:15 12/06/16 21:14 Al Hydroxide/Mg Hydroxide (Mylanta II) 30 ml Q6H PRN ORAL dyspepsia 11/06/16 21:15 12/06/16 21:14 Clonidine HCl (Catapres) 0.1 mg Q6H PRN ORAL SBP >160 11/08/16 01:15 12/08/16 01:14 Dextrose STAT PRN IV Hypoglycemia 11/06/16 21:15 12/06/16 21:14 Diphenhydramine HCl (Benadryl) 25 mg Q6H PRN ORAL Itching/Pruritis 11/06/16 21:15 12/06/16 21:14 Heparin Sodium (Porcine) (Heparin 5000 units/ml) 5,000 units EVERY 12 HOURS SUBQ 11/06/16 22:00 12/06/16 21:59 11/09/16 07:58 Hydrochlorothiazide (Hydrodiuril) 25 mg DAILY GT 11/09/16 17:00 12/09/16 16:59 11/09/16 18:07 Insulin Aspart (NovoLOG) BEFORE MEALS AND HS SUBQ 11/07/16 06:30 12/07/16 06:29 Losartan Potassium (Cozaar) 50 mg DAILY GT 11/09/16 17:00 12/09/16 16:59 11/09/16 17:20 Metformin HCl (Glucophage) 1,000 mg BIAC ORAL 11/10/16 17:00 12/10/16 16:59 Morphine Sulfate (Morphine Sulfate) 6 mg Q3H PRN IVP Severe Pain (Pain Scale 7-10) 11/08/16 12:30 11/15/16 12:29 11/09/16 18:18 Nitroglycerin (Ntg) 0.4 mg Q5M X 3 DOSES PRN SL Prn Chest Pain 11/06/16 21:15 12/06/16 21:14 Ondansetron HCl (Zofran) 4 mg Q6H PRN IVP Nausea & Vomiting 11/06/16 21:15 12/06/16 21:14 11/08/16 08:54 Polyethylene Glycol (Miralax) 17 gm HSPRN PRN ORAL Constipation 11/06/16 21:15 12/06/16 21:14 Sodium Chloride (0.45% NS 1000ml) 1,000 ml @ 75 mls/hr [id number] IV 11/08/16 00:15 12/08/16 00:14 11/09/16 16:26 Temazepam (Restoril) 15 mg HSPRN PRN ORAL Insomnia 11/06/16 21:15 11/13/16 21:14 POLINA CRAWFORD Nov 09, 2016 22:14
[2016-11-10] VITALS: BP 149/89
[2016-11-10 04:00] VITALS: BP 142/99
[2016-11-10 04:58] LABS: BASOPHILS % (AUTO) 0.8 % (0.0-2.0); EOSINOPHILS % (AUTO) 1.3 % (0.0-3.0); LYMPHOCYTES % (AUTO) 24.8 % (20.0-45.0); MEAN CORPUSCULAR HEMOGLOBIN 25.9 PG (27.0-31.0); MEAN CORPUSCULAR HGB CONC 31.1 G/DL (32.0-36.0); MEAN CORPUSCULAR VOLUME 83 FL (80-99); MONOCYTES % (AUTO) 11.4 % (1.0-10.0); NEUTROPHILS % (AUTO) 61.8 % (45.0-75.0); PLATELET COUNT 279 K/UL (150-450); RED BLOOD COUNT 5.96 M/UL (4.70-6.10); RED CELL DISTRIBUTION WIDTH 15.8 % (11.6-14.8)
[2016-11-10 05:08] LABS: INR 1.2 (0.9-1.1); PROTHROMBIN TIME 11.9 SEC (9.30-11.50)
[2016-11-10 05:11] LABS: ANION GAP 16 (5-15); CALCIUM 10.2 mg/dL (8.6-10.2); CARBON DIOXIDE 28 mEQ/L (20-30); CHLORIDE 99 mEQ/L (98-107); CREATININE 0.9 mg/dL (0.7-1.2); GLOMERULAR FILTRATION RATE > 60 mL/min (>60); HEMOLYSIS 1; POTASSIUM 3.8 mEQ/L (3.4-4.9); SODIUM 143 mEQ/L (135-145)
[2016-11-10] MEDS: NovoLOG Insulin Flexpen SUBQ SCH ×4 (06:00→21:00)
[2016-11-10 07:49] VITALS: BP 185/115
[2016-11-10] MEDS: Morphine Sulfate 4mg/ml Inj IVP PRN ×5 (08:10→23:13)
[2016-11-10] MEDS: Losartan 50mg tab GT SCH (08:10)
[2016-11-10] MEDS: Heparin 5000 units/ml inj SUBQ SCH ×3 (08:12→21:00)
--- NOTE | 2016-11-10 10:28 | GI Progress Note ---
Assessment/Plan Problems: (1) Diabetes mellitus ICD Codes: E11.9 - Type 2 diabetes mellitus without complications SNOMED: 18094064 (2) Abdominal pain ICD Codes: R10.9 - Unspecified abdominal pain SNOMED: 14251509 (3) Esophageal perforation ICD Codes: K22.3 - Perforation of esophagus SNOMED: 35899050 (4) Dysphagia ICD Codes: R13.10 - Dysphagia, unspecified SNOMED: 44940091, 139880948 Qualifiers: Qualified Codes: R13.10 - Dysphagia, unspecified Status: unchanged Status Narrative Discussed with Dr. Mckeon. Assessment/Plan 11-06-16 CT Chest no Contrast reviewed >> Gas bubbles within the mediastinum, presumably indicates esophageal perforation secondary to recent esophageal endoscopic dilatation. However, there is no evidence of contrast extravasation from recent esophagram and no abnormal fluid collection or other findings to suggest abscess, see full report. 11-08-[address] Chest non con today - Since previous study of 2 days earlier, previously described mediastinal gas as largely resolved, with only 2 residual tiny extraluminal gas bubbles in the mediastinum. There is new finding of gas in the right neck. As this is remote from the esophagus, suspect that this represents previous mediastinal gas that has dissected cephalad. No evidence of mediastinal abscess or active esophageal leakage. maintain strict NPO, ok to start GTF only fu esophagram with Gastrografin to evaluate leakage >> patient refusing to take contrast pain mgmt fu labs Subjective Subjective throat pain Objective Last 24 Hour Vital Signs Date Time Temp Pulse Resp B/P Pulse Ox O2 Delivery O2 Flow Rate FiO2 11/10/16 08:40 97.2 11/10/16 08:10 185/115 11/10/16 08:09 185/115 11/10/16 07:49 97.2 109 20 185/115 97 Room Air 11/10/16 04:00 97.9 93 20 142/99 94 Room Air 11/10/16 00:00 97.7 102 18 149/89 97 Room Air 11/09/16 20:00 97.9 106 20 160/99 95 Room Air 11/09/16 17:20 144/98 11/09/16 16:00 97.0 100 18 144/98 99 Room Air 11/09/16 12:49 97.0 112 21 91/65 96 Room Air Intake and Output 11/09/16 11/10/16 19:00 07:00 Intake Total 765 ml 1070 ml Output Total 500 ml Balance 765 ml 570 ml Free Water 50 ml 50 ml IV Total 675 ml 750 ml Tube Feeding 40 ml 270 ml Output Urine Total 500 ml # Voids 3 Laboratory Tests Test 11/10/16 04:00 White Blood Count 13.0 K/UL (4.8-10.8) H Red Blood Count 5.96 M/UL (4.70-6.10) Hemoglobin 15.4 G/DL (14.2-18.0) Hematocrit 49.7 % (42.0-52.0) Mean Corpuscular Volume 83 FL (80-99) Mean Corpuscular Hemoglobin 25.9 PG (27.0-31.0) L Mean Corpuscular Hemoglobin Concent 31.1 G/DL (32.0-36.0) L Red Cell Distribution Width 15.8 % (11.6-14.8) H Platelet Count 279 K/UL (150-450) Mean Platelet Volume 8.0 FL (6.5-10.1) Neutrophils (%) (Auto) 61.8 % (45.0-75.0) Lymphocytes (%) (Auto) 24.8 % (20.0-45.0) Monocytes (%) (Auto) 11.4 % (1.0-10.0) H Eosinophils (%) (Auto) 1.3 % (0.0-3.0) Basophils (%) (Auto) 0.8 % (0.0-2.0) Prothrombin Time 11.9 SEC (9.30-11.50) H Prothromb Time International Ratio 1.2 (0.9-1.1) H Sodium Level 143 mEQ/L (135-145) Potassium Level 3.8 mEQ/L (3.4-4.9) Chloride Level 99 mEQ/L (98-107) Carbon Dioxide Level 28 mEQ/L (20-30) Anion Gap 16 (5-15) H Blood Urea Nitrogen 15 mg/dL (7-23) Creatinine 0.9 mg/dL (0.7-1.2) Estimat Glomerular Filtration Rate > 60 mL/min (>60) Glucose Level 153 mg/dL (74-106) H Calcium Level 10.2 mg/dL (8.6-10.2) Height (Feet): 5 Height (Inches): 11.00 Weight (Pounds): 168 General Appearance: no apparent distress, alert, thin Cardiovascular: normal rate Respiratory/Chest: normal breath sounds, no respiratory distress Abdominal Exam: normal bowel sounds, non tender, soft Martha Segundo N.P. Nov 10, 2016 10:28
--- NOTE | 2016-11-10 11:58 | Diagnostic Imaging Report ---
Indication: PAIN, 4 days status post esophageal dilatation Technique: Patient ingested a very limited amount of water-soluble contrast, did not wish to continue. Rapid sequence photospot images obtained Total fluoroscopy time 0.4 minutes. Total dose area product 86 dGycm2 Comparison: None Findings: Patient only took 2 swallows of contrast, one of which was a very small amount. Although no gross extravasation of contrast is demonstrated, evaluation for such is extremely limited. Impression: No gross contrast extravasation. However, due to very limited nature of the exam, esophageal perforation or leak cannot be excluded with any confidence.
[2016-11-10 12:15] VITALS: BP 144/108
[2016-11-10 16:15] VITALS: BP 143/77
[2016-11-10] MEDS: metFORMIN 500mg tab ORAL SCH (16:35)
[2016-11-10 19:00] VITALS: BP 134/58
--- NOTE | 2016-11-10 22:12 | Pulmonology Progress Note ---
Assessment/Plan Problems: (1) Esophageal perforation (2) HTN (hypertension) (3) Diabetes mellitus Assessment/Plan NPO CT scan reviewed, pneumomediastinum has grossly resolved Subjective Allergies: Coded Allergies: No Known Allergies (Unverified , 06/17/14) Objective Last 24 Hour Vital Signs Date Time Temp Pulse Resp B/P Pulse Ox O2 Delivery O2 Flow Rate FiO2 11/10/16 19:00 97.9 87 20 134/58 96 Room Air 11/10/16 17:06 98.1 11/10/16 16:15 98.1 101 20 143/77 97 Room Air 11/10/16 12:15 97.7 100 21 144/108 97 Room Air 11/10/16 08:10 185/115 11/10/16 08:09 185/115 11/10/16 07:49 97.2 109 20 185/115 97 Room Air 11/10/16 04:00 97.9 93 20 142/99 94 Room Air 11/10/16 00:00 97.7 102 18 149/89 97 Room Air Intake and Output 11/09/16 11/10/16 19:00 07:00 Intake Total 765 ml 1195 ml Output Total 500 ml Balance 765 ml 695 ml Free Water 50 ml 50 ml IV Total 675 ml 825 ml Tube Feeding 40 ml 320 ml Output Urine Total 500 ml # Voids 3 Objective General Appearance: WD/WN HEENT: normocephalic Respiratory/Chest: chest wall non-tender, lungs clear Cardiovascular: normal peripheral pulses, normal rate Abdomen: normal bowel sounds Genitourinary: normal external genitalia Laboratory Tests 11/10/16 04:00: White Blood Count 13.0H, Red Blood Count 5.96, Hemoglobin 15.4, Hematocrit 49.7 , Mean Corpuscular Volume 83, Mean Corpuscular Hemoglobin 25.9L, Mean Corpuscular Hemoglobin Concent 31.1L, Red Cell Distribution Width 15.8H, Platelet Count 279, Mean Platelet Volume 8.0, Neutrophils (%) (Auto) 61.8, Lymphocytes (%) (Auto) 24.8, Monocytes (%) (Auto) 11.4H, Eosinophils (%) (Auto) 1.3, Basophils (%) (Auto) 0.8, Prothrombin Time 11.9H, Prothromb Time International Ratio 1.2H, Sodium Level 143, Potassium Level 3.8, Chloride Level 99, Carbon Dioxide Level 28, Anion Gap 16H, Blood Urea Nitrogen 15, Creatinine 0.9, Estimat Glomerular Filtration Rate > 60, Glucose Level 153H, Calcium Level 10.2 Current Medications Medications (Trade) Dose Ordered Sig/Eda Route PRN Reason Start Time Stop Time Status Last Admin Dose Admin Acetaminophen (Tylenol) 650 mg Q4H PRN ORAL fever 11/06/16 21:15 12/06/16 21:14 Al Hydroxide/Mg Hydroxide (Mylanta II) 30 ml Q6H PRN ORAL dyspepsia 11/06/16 21:15 12/06/16 21:14 Clonidine HCl (Catapres) 0.1 mg Q6H PRN ORAL SBP >160 11/08/16 01:15 12/08/16 01:14 11/10/16 08:09 Dextrose STAT PRN IV Hypoglycemia 11/06/16 21:15 12/06/16 21:14 Diphenhydramine HCl (Benadryl) 25 mg Q6H PRN ORAL Itching/Pruritis 11/06/16 21:15 12/06/16 21:14 Heparin Sodium (Porcine) (Heparin 5000 units/ml) 5,000 units EVERY 12 HOURS SUBQ 11/06/16 22:00 12/06/16 21:59 11/09/16 07:58 Hydrochlorothiazide (Hydrodiuril) 25 mg DAILY GT 11/09/16 17:00 12/09/16 16:59 11/10/16 08:09 Insulin Aspart (NovoLOG) BEFORE MEALS AND HS SUBQ 11/07/16 06:30 12/07/16 06:29 Losartan Potassium (Cozaar) 50 mg DAILY GT 11/09/16 17:00 12/09/16 16:59 11/10/16 08:10 Metformin HCl (Glucophage) 1,000 mg BIAC ORAL 11/10/16 17:00 12/10/16 16:59 11/10/16 16:35 Morphine Sulfate (Morphine Sulfate) 6 mg Q3H PRN IVP Severe Pain (Pain Scale 7-10) 11/08/16 12:30 11/15/16 12:29 11/10/16 20:01 Nitroglycerin (Ntg) 0.4 mg Q5M X 3 DOSES PRN SL Prn Chest Pain 11/06/16 21:15 12/06/16 21:14 Ondansetron HCl (Zofran) 4 mg Q6H PRN IVP Nausea & Vomiting 11/06/16 21:15 12/06/16 21:14 11/08/16 08:54 Polyethylene Glycol (Miralax) 17 gm HSPRN PRN ORAL Constipation 11/06/16 21:15 12/06/16 21:14 Sodium Chloride (0.45% NS 1000ml) 1,000 ml @ 75 mls/hr [id number] IV 11/08/16 00:15 12/08/16 00:14 11/10/16 05:00 Temazepam (Restoril) 15 mg HSPRN PRN ORAL Insomnia 11/06/16 21:15 11/13/16 21:14 POLINA CRAWFORD Nov 10, 2016 22:12
[2016-11-11] VITALS: BP 119/98
[2016-11-11 04:00] VITALS: BP 129/66
[2016-11-11] MEDS: metFORMIN 500mg tab ORAL SCH (06:13)
[2016-11-11] MEDS: NovoLOG Insulin Flexpen SUBQ SCH ×2 (06:14→11:30)
[2016-11-11 07:25] LABS: BASOPHILS % (AUTO) 0.6 % (0.0-2.0); LYMPHOCYTES % (AUTO) 24.1 % (20.0-45.0); MEAN CORPUSCULAR HEMOGLOBIN 25.1 PG (27.0-31.0); MEAN CORPUSCULAR HGB CONC 30.4 G/DL (32.0-36.0); MEAN CORPUSCULAR VOLUME 83 FL (80-99); MEAN PLATELET VOLUME 7.3 FL (6.5-10.1); MONOCYTES % (AUTO) 13.3 % (1.0-10.0); NEUTROPHILS % (AUTO) 59.1 % (45.0-75.0); PLATELET COUNT 267 K/UL (150-450); RED CELL DISTRIBUTION WIDTH 15.4 % (11.6-14.8); WHITE BLOOD COUNT 11.8 K/UL (4.8-10.8)
[2016-11-11 07:56] LABS: ANION GAP 15 (5-15); CALCIUM 9.7 mg/dL (8.6-10.2); CARBON DIOXIDE 31 mEQ/L (20-30); CHLORIDE 101 mEQ/L (98-107); CREATININE 0.8 mg/dL (0.7-1.2); GLOMERULAR FILTRATION RATE > 60 mL/min (>60); HEMOLYSIS 0; POTASSIUM 3.3 mEQ/L (3.4-4.9); SODIUM 147 mEQ/L (135-145)
[2016-11-11] MEDS: Morphine Sulfate 4mg/ml Inj IVP PRN ×2 (07:56→11:59)
[2016-11-11 08:16] VITALS: BP 123/93
[2016-11-11] MEDS: Losartan 50mg tab GT SCH (08:24)
[2016-11-11] MEDS: Heparin 5000 units/ml inj SUBQ SCH (08:25)
--- NOTE | 2016-11-11 10:13 | General Progress Note ---
Assessment/Plan Problem List: (1) HTN (hypertension) ICD Codes: I10 - Essential (primary) hypertension SNOMED: 21040129 (2) Diabetes mellitus ICD Codes: E11.9 - Type 2 diabetes mellitus without complications SNOMED: 55477632 (3) Abdominal pain ICD Codes: R10.9 - Unspecified abdominal pain SNOMED: 59963027 (4) Esophageal perforation ICD Codes: K22.3 - Perforation of esophagus SNOMED: 49811106 (5) Dysphagia ICD Codes: R13.10 - Dysphagia, unspecified SNOMED: 58579279, 818436371 Qualifiers: Qualified Codes: R13.10 - Dysphagia, unspecified Assessment/Plan tolerated GTF pend dc today pain management Subjective ROS Limited/Unobtainable: No Allergies: Coded Allergies: No Known Allergies (Unverified , 06/17/14) Objective Last 24 Hour Vital Signs Date Time Temp Pulse Resp B/P Pulse Ox O2 Delivery O2 Flow Rate FiO2 11/11/16 08:26 97.7 11/11/16 08:24 123/93 11/11/16 08:16 97.7 120 21 123/93 97 Room Air 11/11/16 04:00 97.0 83 21 129/66 97 Room Air 11/11/16 00:00 98.4 100 20 119/98 97 Room Air 11/10/16 19:00 97.9 87 20 134/58 96 Room Air 11/10/16 16:15 98.1 101 20 143/77 97 Room Air 11/10/16 12:15 97.7 100 21 144/108 97 Room Air Intake and Output 11/10/16 11/11/16 19:00 07:00 Intake Total 1525 ml 380 ml Output Total 600 ml Balance 925 ml 380 ml Free Water 200 ml IV Total 750 ml Tube Feeding 575 ml Other 380 ml Output Urine Total 600 ml # Voids 2 4 Laboratory Tests 11/11/16 04:30: White Blood Count 11.8H, Red Blood Count 6.00, Hemoglobin 15.1, Hematocrit 49.6 , Mean Corpuscular Volume 83, Mean Corpuscular Hemoglobin 25.1L, Mean Corpuscular Hemoglobin Concent 30.4L, Red Cell Distribution Width 15.4H, Platelet Count 267, Mean Platelet Volume 7.3, Neutrophils (%) (Auto) 59.1, Lymphocytes (%) (Auto) 24.1, Monocytes (%) (Auto) 13.3H, Eosinophils (%) (Auto) 3.0, Basophils (%) (Auto) 0.6, Sodium Level 147H, Potassium Level 3.3L, Chloride Level 101, Carbon Dioxide Level 31H, Anion Gap 15, Blood Urea Nitrogen 16, Creatinine 0.8, Estimat Glomerular Filtration Rate > 60, Glucose Level 166H , Calcium Level 9.7 Height (Feet): 5 Height (Inches): 11.00 Weight (Pounds): 168 General Appearance: no apparent distress EENT: normal ENT inspection Neck: supple Cardiovascular: normal rate Respiratory/Chest: decreased breath sounds Abdomen: normal bowel sounds, non tender, soft Extremities: non-tender RALF KELLY Nov 11, 2016 10:13
[2016-11-11 12:32] VITALS: BP 130/89
[2016-11-11] MEDS ORDERED: ACETAMINOPHEN-1 EAC1 ORAL (12:52)
[2016-11-11] MEDS ORDERED: 1/2 NS 1000ml IV ONE (14:46)
--- NOTE | 2016-11-14 10:46 | Discharge Summary ---
Discharge Summary Hospital Course Date of Admission Nov 06, 2016 at 19:50 Date of Discharge Nov 11, 2016 at 15:50 Admitting Diagnosis weakness, vomiting HPI Leonard Hastings is a 56 year old male who was admitted on Nov 06, 2016 at 19:50 for Weakness,Vomiting Hospital Course dc summary #[id number] Discharge Medications New Medications: Acetaminophen With Codeine (T#3) (Tylenol #3 Tab*) Y Tab 1 TAB ORAL Q4H PRN, #30 TAB Continued Medications: Hydrochlorothiazide* (Hydrochlorothiazide*) 25 Mg Tablet 25 MG ORAL DAILY, TAB Losartan Potassium* (Losartan Potassium*) 50 Mg Tablet 50 MG ORAL DAILY, TAB Metformin Hcl* (Metformin Hcl*) 1,000 Mg Tablet 1000 MG ORAL EVERY 2 HOURS, TAB Discharge Discharge Disposition Patient was discharged to Home with Home Health(06) Discharge Diagnoses: Discharge Instructions Discharge Instructions Special Instructions I have been assigned to complete a D/C Summary on this account. I was not involved in the patient management Bri Sorensen NP ([place]) Nov 14, 2016 10:46
--- NOTE | 2016-11-20 16:08 | Discharge Summary 2 SIG ---
DATE OF ADMISSION: 11/06/2016 DATE OF DISCHARGE: 11/11/2016 REASON FOR ADMISSION: 56-year-old male was brought to the emergency room for evaluation by family. The patient stated he had an endoscopy done in the same day earlier in [facility] and reported throat pain after endoscopy. Family at the bedside stated that the patient had a very narrow esophagus requiring dilatation. Pain was described as sharp, 10/10, radiating down the esophagus, and worse with swallowing. The patient denied chest pain or shortness of breath. The patient denied fever or chills. CT of the chest was ordered. The patient had a history of CVA and had a G-tube in place. CT of the chest, which was ordered revealed gas bubbles within the mediastinum, presumptively indicated esophageal perforation secondary to recent esophageal endoscopic dilatation. However, there was no evidence of contrast extravasation from recent esophagram and no abnormal fluid collection or other finding to suggest abscess. X-ray of the esophagus revealed no gross contrast extravasation. A small sliding-type hiatal hernia. The patient stated that there were several strictures, which required dilatation. The patient was admitted for IV fluids since was having dysphagia and was unable to tolerate oral intake and felt weak. ADMITTING DIAGNOSES: 1. Dysphagia, status post endoscopy. 2. Possible esophageal perforation. HOSPITAL COURSE: The patient was admitted. The patient was initially kept NPO. GI consult requested. The patient was provided with symptomatic treatment and pain management. Followup chest x-ray was negative. Potassium was replaced. Blood sugar was managed with sliding scale of insulin. Blood pressure was managed with current regimen. Urine culture revealed mixed gram-positive organism, colony count less than 10,000. Repeated CT of the chest in two days revealed the following findings: since previous study of two days earlier, previously described mediastinal gas largely resolved, with only two residual tiny extraluminal gas bubbles in the mediastinum. There was a new finding of gas in the right neck. Suspected that it represented a previous mediastinal gas that has dissected cephalad. No evidence of mediastinal abscess or active esophageal leakage. Marked improvement in parenchymal disease in the left lung. Chronic bronchial and peribronchial disease of the left upper lung demonstrated again, with evidence of bronchiectasis. Esophagus x-ray also repeated and revealed no gross contrast extravasation. The patient was started on the G-tube feeding and was able to tolerate feeding. Pain management provided. Throat pain resolved. GI cleared for discharge. The patient was stable for discharge. DISCHARGE DIAGNOSES: 1. Esophageal perforation. 2. Dysphagia, status post endoscopy. 3. Hypertension. 4. Diabetes. 5. History of cerebrovascular accident. 6. Gastrostomy tube status. DISCHARGE MEDICATIONS: See medication reconciliation list. DISCHARGE INSTRUCTIONS: The patient was discharged home with home health services. Follow up with primary medical doctor and GI, who performed the procedure. David Corea M.D. I have been assigned to dictate discharge summary on this account and I was not involved in the patient's management. Bri CejaMontefiore Medical Centerclyde N.PMelissa DR: AMA JOB#: [id number] CC: DENYS
== END 2016-11-11 15:50 | disposition home health service (06) | DRG 242 ==
LOC: ENRESERVDT → ENRESERVTM → EDUNIT# 15:48 → EDBD 15:48 → EMR 16:14 → EDBEDREQ 18:27 → 4W 19:50 → EDBEDREQ 21:15
PROC: 02HV33Z Insertion of Infusion Device into Superior Vena Cava, Percutaneous Approach (ICD-10-PCS; principal; 2016-11-07)
DX: K22.3 Perforation of esophagus (principal); Z43.1 Encounter for attention to gastrostomy; I10 Essential (primary) hypertension; E11.9 Type 2 diabetes mellitus without complications; R13.10 Dysphagia, unspecified; R10.9 Unspecified abdominal pain; Z98.890 Other specified postprocedural states; K44.9 Diaphragmatic hernia without obstruction or gangrene; Z86.73 Personal history of transient ischemic attack (TIA), and cerebral infarction without residual deficits
CPT/HCPCS: 36415; 36569; 71010; 71250; 74220; 76700; 76937; 80048; 80053; 81003; 82150; 82550; 82553; 82962; 83690; 84484; 85025; 85610; 85730; 87086; J1815; J2405

== ENCOUNTER 2017-05-06 16:01 | Emergency (ER) | payer OTHER ==
[~2017-05-06] VITALS: Ht 180.3 cm; Wt 86.2 kg
[2017-05-06 16:04] VITALS: BP 165/100
--- NOTE | 2017-05-06 16:42 | Emergency Room Report ---
History of Present Illness General Chief Complaint: Multiple Trauma/Fall Source: Patient Present Illness Allergies: Coded Allergies: No Known Allergies (Unverified , 06/17/14) Nursing Documentation-[facility] Past Medical History: No History, Except For Hx Cardiac Problems: No Hx Hypertension: Yes Hx Asthma: Yes Hx Diabetes: Yes Hx Cancer: No Hx Gastrointestinal Problems: No Hx Neurological Problems: Yes Hx Cerebrovascular Accident: Yes Physical Exam Vital Signs Date Time Temp Pulse Resp B/P (MAP) Pulse Ox O2 Delivery O2 Flow Rate FiO2 05/06/17 16:04 98.4 91 18 165/100 98 Room Air Medical Decision Making ER Course Never saw patient Not in ED or waiting room Last Vital Signs Date Time Temp Pulse Resp B/P (MAP) Pulse Ox O2 Delivery O2 Flow Rate FiO2 05/06/17 16:04 98.4 91 18 165/100 98 Room Air Disposition: LEFT W/OUT BEING SEEN JEREMY LEO M.D. May 06, 2017 16:42
[2017-05-06 17:31] VITALS: BP 0/0
[2017-05-06] MEDS ORDERED: NORCO 5-325 TA1 EACH ORAL (18:44)
== END 2017-05-06 17:00 | disposition left against medical advice (07) ==
LOC: EMR 16:39
DX: M54.9 Dorsalgia, unspecified (principal); Z53.21 Procedure and treatment not carried out due to patient leaving prior to being seen by health care provider
CPT/HCPCS: 99284

== ENCOUNTER 2017-05-06 17:31 | Emergency (ER) | payer OTHER ==
[~2017-05-06] VITALS: Ht 180.3 cm; Wt 86.2 kg
[2017-05-06 17:33] VITALS: BP 124/88
[2017-05-06] MEDS ORDERED: Norco 5mg/325mg tab ORAL ONE (17:45)
--- NOTE | 2017-05-06 17:49 | Emergency Room Report ---
History of Present Illness General Chief Complaint: Back Pain-No Injury Source: Patient (Adelita Carter) Present Illness HPI Patient is a 7-year-old male who presents today in with complaints of back pain. He states he had a mechanical fall yesterday landing on his bottom. He is complaining of 7/10 pain, worse with ambulation and weightbearing. He has not taken medication for the pain. He denies any changes in bowel or bladder habits. Denies numbness, tingling, loss of sensation. (Adelita Carter) Allergies: Coded Allergies: No Known Allergies (Unverified , 06/17/14) Patient History Reviewed Nursing Documentation: PMH: Agreed, PSxH: Agreed (Adelita Carter) Nursing Documentation-PM Past Medical History: No History, Except For Hx Cardiac Problems: No Hx Hypertension: Yes Hx Asthma: Yes Hx Diabetes: Yes Hx Cancer: No Hx Gastrointestinal Problems: No Hx Neurological Problems: Yes Hx Cerebrovascular Accident: Yes (Adelita Carter) Review of Systems Musculoskeletal: Reports: back pain All Other Systems: negative except mentioned in HPI (Adelita Carter.Arvind) Physical Exam Vital Signs Date Time Temp Pulse Resp B/P (MAP) Pulse Ox O2 Delivery O2 Flow Rate FiO2 05/06/17 17:33 98.6 93 18 124/88 98 Room Air Sp02 EP Interpretation: reviewed, normal General Appearance: no apparent distress, alert, GCS 15, non-toxic Head: normocephalic, atraumatic Eyes: bilateral eye normal inspection, bilateral eye PERRL ENT: hearing grossly normal, normal pharynx, no angioedema, normal voice Neck: full range of motion, supple/symm/no masses Respiratory: chest non-tender, lungs clear, normal breath sounds, speaking full sentences Cardiovascular #1: regular rate, rhythm, no edema Cardiovascular #2: 2+ carotid (R), 2+ carotid (L), 2+ radial (R), 2+ radial (L) , 2+ dorsalis pedis (R), 2+ dorsalis pedis (L) Gastrointestinal: normal bowel sounds, non tender, soft, non-distended, no guarding, no rebound Rectal: deferred Genitourinary: normal inspection, no CVA tenderness Musculoskeletal: back normal, gait/station normal, normal range of motion, non- tender, calf tenderness, other - No TTP over the C spine, no midline tenderness , mild TTP over the right pelvis Neurologic: alert, oriented x3, responsive, motor strength/tone normal, sensory intact, speech normal, other - 5/5 strength in BLE, NVI Psychiatric: judgement/insight normal, memory normal, mood/affect normal, no suicidal/homicidal ideation Reflexes: 3+ bicep (R), 3+ bicep (L), 3+ tricep (R), 3+ tricep (L), 3+ knee (R) , 3+ knee (L) Skin: normal color, no rash, warm/dry, well hydrated Lymphatic: no adenopathy (Adelita Carter P.A.) Medical Decision Making PA Attestation Supervising physician is Dr. Crawford (Adelita Carter P.A.) Diagnostic Impression: Primary Impression: Fall Additional Impressions: Lumbago Hip pain ER Course No evidence of fracture on x-ray. Reevaluation at 1843, patient states he was improving with medication. Patient is ambulatory in the ED without difficulty. Patient discharged home with prescription for [place] and instructed to followup with PCP for reevaluation. Patient understands and is agreeable with plan. Please note this report is being documented using [employer] technology. This can lead to erroneous entry secondary to incorrect interpretation by the dictating instrument. (Adelita Cartre P.A.) ER Course attempted to call pt 3x however no answer, left msg wanted to inform of radiology results of sclerotic lesions, needs bone scan will send certified letter (Alessandro Dawkins M.D.) Other X-Ray Diagnostic Results Other X-Ray Diagnostic Results #1: X-Ray ordered: pelvis # of Views/Limited Vs Complete: 3 View Indication: Pain EP Interpretation: Yes Interpretation: no dislocation, no soft tissue swelling, no fractures, other - degenerative changes Impression: No acute disease Electronically Signed by: KAREN Other X-Ray Diagnostic Results #2: X-Ray ordered: hip right # of Views/Limited Vs Complete: 3 View Indication: Pain EP Interpretation: Yes Interpretation: no dislocation, no soft tissue swelling, no fractures, other - degenenerative changes Impression: No acute disease Electronically Signed by: karen (Adelita Carter P.A.) Reevaluation Time: 18:41 Last Vital Signs Date Time Temp Pulse Resp B/P (MAP) Pulse Ox O2 Delivery O2 Flow Rate FiO2 05/06/17 17:33 98.6 93 18 124/88 98 Room Air Status: improved (Adelita Carter) Disposition: HOME, SELF-CARE Condition: Stable Scripts Hydrocodone Bit/Acetaminophen 5-325* (NORCO 5-325*) 1 Each Tablet 1 TAB ORAL Q4H Y for For Pain, #10 TAB 0 Refills Prov: Adelita Carter 05/06/17 Patient Instructions: Back Pain, Adult Adelita Carter May 06, 2017 17:49 Alessandro Dawkins M.D. May 07, 2017 14:25
[2017-05-06] MEDS ORDERED: NORCO 5-325 TA1 EACH ORAL (18:44)
[2017-05-06 18:57] VITALS: BP 124/88
--- NOTE | 2017-05-07 10:13 | Diagnostic Imaging Report ---
Indication: PAIN Technique: One view of the pelvis Comparison: None Findings: No acute fractures. No dislocations. Joint spaces are preserved. There is mild sacroiliac joint space degeneration with vacuum formation noted. Surgical clips are seen to the right of the lower lumbar spine. There are numerous small osseous sclerotic foci within the left hip intertrochanteric region. These are more numerous and is demonstrated on a prior abdomen pelvis CT of 11/30/2014 Impression: No acute bony trauma Unusual finding of multiple small osseous sclerotic foci in the left intertrochanteric region, although one of which are new since a prior CT scan of 11/30/2014. Recommend further evaluation with bone scan to determine if these are metabolically active. This finding was discussed by phone with Dr. Dawkins in the emergency room at the time of interpretation
--- NOTE | 2017-05-07 10:14 | Diagnostic Imaging Report ---
Indication: PAIN Technique: 2 views of the right hip Comparison: None Findings: No acute fractures. No dislocations. Joint spaces are preserved. There is vacuum formation in the bilateral sacroiliac joints indicating early degenerative change Impression: No acute process
== END 2017-05-06 18:58 | disposition home or self-care (01) ==
LOC: EMR 18:36
DX: M54.5 Low back pain (principal); M25.551 Pain in right hip; W19.XXXA Unspecified fall, initial encounter; Y92.89 Other specified places as the place of occurrence of the external cause; E11.9 Type 2 diabetes mellitus without complications; J45.909 Unspecified asthma, uncomplicated; Z86.73 Personal history of transient ischemic attack (TIA), and cerebral infarction without residual deficits
CPT/HCPCS: 72170; 99284

== ENCOUNTER 2017-05-11 10:01 | Emergency (ER) | payer OTHER ==
[~2017-05-11] VITALS: Ht 180.3 cm; Wt 87.5 kg
[2017-05-11 10:46] VITALS: BP 149/88
[2017-05-11 10:52] VITALS: BP 149/82
--- NOTE | 2017-05-11 11:02 | Emergency Room Report ---
History of Present Illness General Chief Complaint: General Complaint Source: Patient, Medical Record Present Illness HPI 57-year-old male, here because he thought a certified letter sent from the emergency room for followup x-ray results. Patient had a hep and pelvis x-ray, showed to have sclerotic lesions, was told to followup with his primary care doctor for a bone scan Patient has no complaints today Allergies: Coded Allergies: No Known Allergies (Unverified , 06/17/14) Patient History Past Medical History: see triage record Past Surgical History: none Pertinent Family History: none Reviewed Nursing Documentation: PMH: Agreed, PSxH: Agreed Nursing Documentation-PMH Past Medical History: No History, Except For Hx Cardiac Problems: No Hx Hypertension: Yes Hx Asthma: Yes Hx Diabetes: Yes Hx Cancer: No Hx Gastrointestinal Problems: No Hx Neurological Problems: Yes Hx Cerebrovascular Accident: Yes Review of Systems All Other Systems: negative except mentioned in HPI Physical Exam Vital Signs Date Time Temp Pulse Resp B/P (MAP) Pulse Ox O2 Delivery O2 Flow Rate FiO2 05/11/17 10:05 97.5 94 18 151/102 99 Room Air Sp02 EP Interpretation: reviewed, normal General Appearance: normal inspection, well appearing, no apparent distress, alert, GCS 15, non-toxic Head: normocephalic, atraumatic Eyes: bilateral eye normal inspection, bilateral eye PERRL, bilateral eye EOMI ENT: normal ENT inspection, normal pharynx, normal voice, moist mucus membranes Neck: normal inspection, full range of motion, supple Respiratory: normal inspection, lungs clear, normal breath sounds, no respiratory distress, no retraction, no wheezing, speaking full sentences, chest symmetrical Cardiovascular #1: normal inspection, regular rate, rhythm, no edema, normal capillary refill Cardiovascular #2: 2+ radial (R), 2+ radial (L) Gastrointestinal: normal inspection, non tender, soft, non-distended, no guarding Genitourinary: no CVA tenderness Musculoskeletal: normal inspection, back normal, normal range of motion, non- tender Neurologic: normal inspection, alert, oriented x3, responsive, motor strength/ tone normal, sensory intact, normal gait, speech normal Psychiatric: normal inspection, judgement/insight normal, memory normal Skin: normal inspection, normal color, no rash, warm/dry, well hydrated, normal turgor Medical Decision Making Diagnostic Impression: Primary Impression: Well adolescent visit with abnormal findings ER Course 57-year-old male here for x-ray results Plan: None ER course: Patient has remained stable during ED stay. Disposition: Patient is to be discharged to home. Patient is instructed to follow up with their primary care doctor within 5 days and to obtain a bone scan. Patient was given his x-ray results by paper Please note that this Emergency Department Report was dictated using BigDNAphotographer helper technology software, occasionally this can lead to erroneous entry secondary to interpretation by the dictation equipment Last Vital Signs Date Time Temp Pulse Resp B/P (MAP) Pulse Ox O2 Delivery O2 Flow Rate FiO2 05/11/17 10:46 98.0 82 20 149/88 100 Room Air Disposition: HOME, SELF-CARE Condition: Stable Referrals: [facility],REFERRING (PCP) Additional Instructions: Please schedule a bone scan with your primary care Dr. Please see attached x-ray results Alessandro Dawkins M.D. May 11, 2017 11:02
== END 2017-05-11 10:52 | disposition home or self-care (01) ==
LOC: EMR 10:26
DX: Z00.01 Encounter for general adult medical examination with abnormal findings (principal); I10 Essential (primary) hypertension; J45.909 Unspecified asthma, uncomplicated; E11.9 Type 2 diabetes mellitus without complications; Z86.69 Personal history of other diseases of the nervous system and sense organs; Z86.73 Personal history of transient ischemic attack (TIA), and cerebral infarction without residual deficits
CPT/HCPCS: 99282

== ENCOUNTER 2017-07-04 14:49 | Inpatient (IN) | payer OTHER ==
[~2017-07-04] VITALS: Ht 180.3 cm; Wt 86.2 kg
[2017-07-04] MEDS ORDERED: UNOBMED (15:13)
[2017-07-04] MEDS ORDERED: Sodium Chloride 500ML 500 ML IV ONE (15:15)
[2017-07-04] MEDS ORDERED: ASPIR 8181 MG ORAL (15:18)
[2017-07-04] MEDS ORDERED: PROTONIX40 MG ORAL (15:18)
[2017-07-04] MEDS ORDERED: LOSARTAN POTASS25 MG ORAL (15:18)
[2017-07-04 16:15] VITALS: BP 145/100
[2017-07-04 16:15] LABS: EOSINOPHILS % (AUTO) 4.2 % (0.0-3.0); LYMPHOCYTES % (AUTO) 29.1 % (20.0-45.0); MEAN CORPUSCULAR HEMOGLOBIN 25.8 PG (27.0-31.0); MEAN CORPUSCULAR HGB CONC 29.9 G/DL (32.0-36.0); MEAN CORPUSCULAR VOLUME 86 FL (80-99); MEAN PLATELET VOLUME 6.7 FL (6.5-10.1); MONOCYTES % (AUTO) 6.5 % (1.0-10.0); NEUTROPHILS % (AUTO) 59.1 % (45.0-75.0); PLATELET COUNT 210 K/UL (150-450); RED BLOOD COUNT 4.87 M/UL (4.70-6.10); RED CELL DISTRIBUTION WIDTH 11.9 % (11.6-14.8); WHITE BLOOD COUNT 9.9 K/UL (4.8-10.8)
[2017-07-04 16:25] LABS: ANION GAP 8 mmol/L (5-15); CARBON DIOXIDE 31 MMOL/L (21-32); CHLORIDE 103 MMOL/L (98-107); CREATININE 1.3 MG/DL (0.55-1.30); GLOMERULAR FILTRATION RATE > 60 mL/min (>60); POTASSIUM 3.3 MMOL/L (3.5-5.1); SODIUM 141 MMOL/L (136-145)
[2017-07-04 16:40] LABS: ALANINE AMINOTRANSFERASE 29 U/L (12-78); ALBUMIN/GLOBULIN RATIO 1.1 (1.0-2.7); ASPARTATE AMINO TRANSFERASE 17 U/L (15-37); CKMB 1.2 NG/ML (0.0-3.6)
--- NOTE | 2017-07-04 17:01 | Emergency Room Report ---
History of Present Illness General Chief Complaint: Dizziness Source: Patient Present Illness HPI 57-year-old male presents ED for evaluation. Patient states that he had a stroke 6 months ago. States that since discharge his been having persistent dizziness and unsteady gait. Patient states he has fallen multiple times in the last 6 months and last time he fell was yesterday. Denies any headache or blurry vision. Denies chest pain or shortness of breath. No other aggravating relieving factors. 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 Review of Systems All Other Systems: negative except mentioned in HPI Physical Exam Vital Signs Date Time Temp Pulse Resp B/P (MAP) Pulse Ox O2 Delivery O2 Flow Rate FiO2 07/04/17 15:09 98.4 90 18 152/104 96 Room Air Sp02 EP Interpretation: reviewed, normal General Appearance: no apparent distress, alert, GCS 15, non-toxic Head: normocephalic, atraumatic Eyes: bilateral eye normal inspection, bilateral eye PERRL ENT: hearing grossly normal, normal pharynx, no angioedema, normal voice Neck: full range of motion, supple/symm/no masses Respiratory: chest non-tender, lungs clear, normal breath sounds, speaking full sentences Cardiovascular #1: regular rate, rhythm, no edema Cardiovascular #2: 2+ carotid (R), 2+ carotid (L), 2+ radial (R), 2+ radial (L) , 2+ dorsalis pedis (R), 2+ dorsalis pedis (L) Gastrointestinal: normal bowel sounds, non tender, soft, non-distended, no guarding, no rebound Rectal: deferred Genitourinary: normal inspection, no CVA tenderness Musculoskeletal: back normal, gait/station normal, normal range of motion, non- tender Neurologic: alert, oriented x3, responsive, motor strength/tone normal, sensory intact, speech normal Psychiatric: judgement/insight normal, memory normal, mood/affect normal, no suicidal/homicidal ideation Reflexes: 3+ bicep (R), 3+ bicep (L), 3+ tricep (R), 3+ tricep (L), 3+ knee (R) , 3+ knee (L) Skin: normal color, no rash, warm/dry, well hydrated Lymphatic: no adenopathy Medical Decision Making Diagnostic Impression: Primary Impression: Dizziness Additional Impression: Lacunar infarction ER Course Hospital Course 57-year-old male presents to ED complaining of dizziness and unsteady gait. Multiple falls. History of CVA Differential diagnoses include: MD/unstable angina, SVT/Vtach/AFib, CVA/TIA Clinical course Patient placed on stretcher. on electronic device monitor. After initial history and physical I ordered labs, EKG, chest x-ray, and CT head Patient is difficult IV access due to IV drug abuse. I placed a peripheral EJ line labs reviewed- electrolytes ok, troponins negative, no leukocytosis, Hb/Hct stable EKG - NSR, no acute ischemic changes interpreted by me Chest x-ray- no acute process CT brain -no acute bleed, lacunar infarct noted of unknown acuity Given aspirin in ED. placed on NIH stroke scale and chronicity of symptoms patient is not a candidate for thrombolytic therapy Case discussed with Dr. Corea and he agreed to accept the patient to his service for further care and support I. I feel this is a highly complex case requiring extensive working including EKG/Rhythm strip, Xray/CT/US, Blood/urine lab work, repeat exams while in ED, and administration of strong opiates/narcotics for pain control, admission to hospital or close patient follow up. Diagnosis - dizziness, lacunar infarction admitted to telemetry in serious condition Labs Test 07/04/17 16:00 White Blood Count 9.9 K/UL (4.8-10.8) Red Blood Count 4.87 M/UL (4.70-6.10) Hemoglobin 12.6 G/DL (14.2-18.0) Hematocrit 41.9 % (42.0-52.0) Mean Corpuscular Volume 86 FL (80-99) Mean Corpuscular Hemoglobin 25.8 PG (27.0-31.0) Mean Corpuscular Hemoglobin Concent 29.9 G/DL (32.0-36.0) Red Cell Distribution Width 11.9 % (11.6-14.8) Platelet Count 210 K/UL (150-450) Mean Platelet Volume 6.7 FL (6.5-10.1) Neutrophils (%) (Auto) 59.1 % (45.0-75.0) Lymphocytes (%) (Auto) 29.1 % (20.0-45.0) Monocytes (%) (Auto) 6.5 % (1.0-10.0) Eosinophils (%) (Auto) 4.2 % (0.0-3.0) Basophils (%) (Auto) 1.0 % (0.0-2.0) Sodium Level 141 MMOL/L (136-145) Potassium Level 3.3 MMOL/L (3.5-5.1) Chloride Level 103 MMOL/L (98-107) Carbon Dioxide Level 31 MMOL/L (21-32) Anion Gap 8 mmol/L (5-15) Blood Urea Nitrogen 17 mg/dL (7-18) Creatinine 1.3 MG/DL (0.55-1.30) Estimat Glomerular Filtration Rate > 60 mL/min (>60) Glucose Level 133 MG/DL (74-106) Calcium Level 9.0 MG/DL (8.5-10.1) Total Bilirubin 0.3 MG/DL (0.2-1.0) Aspartate Amino Transf (AST/SGOT) 17 U/L (15-37) Alanine Aminotransferase (ALT/SGPT) 29 U/L (12-78) Alkaline Phosphatase 74 U/L (46-116) Total Creatine Kinase 160 U/L (26-308) Creatine Kinase MB 1.2 NG/ML (0.0-3.6) Creatine Kinase MB Relative Index 0.7 Troponin I 0.005 ng/mL (0.000-0.056) Pro-B-Type Natriuretic Peptide 71 pg/mL (0-125) Total Protein 7.0 G/DL (6.4-8.2) Albumin 3.7 G/DL (3.4-5.0) Globulin 3.3 g/dL Albumin/Globulin Ratio 1.1 (1.0-2.7) EKG Diagnostic Results Rate: normal Rhythm: NSR ST Segments: no acute changes ASA given to the pt in ED: Yes Rhythm Strip Diag. Results EP Interpretation: yes Rhythm: NSR, no PVC's, no ectopy Chest X-Ray Diagnostic Results Chest X-Ray Diagnostic Results : Chest X-Ray Ordered: Yes # of Views/Limited/Complete: 1 View Indication: Other - dizziness EP Interpretation: Yes Interpretation: no consolidation, no effusion, no pneumothorax, no acute cardiopulmonary disease Impression: No acute disease Electronically Signed by: Electronically signed by Beni Oliver MD CT/MRI/US Diagnostic Results CT/MRI/US Diagnostic Results : Imaging Test Ordered: CT head Impression no acute bleed. evidence of lacunar infarct Last Vital Signs Date Time Temp Pulse Resp B/P (MAP) Pulse Ox O2 Delivery O2 Flow Rate FiO2 07/04/17 16:15 98.4 83 16 145/100 100 Room Air Status: improved Disposition: ADMITTED INPATIENT Condition: Serious Referrals: [facility],REFERRING (PCP) BENI OLIVER M.D. Jul 04, 2017 17:01
[2017-07-04] MEDS ORDERED: Morphine Sulfate 4mg/ml Inj IVP ONE (17:30)
--- NOTE | 2017-07-04 18:50 | History and Physical ---
History of Present Illness General Date patient seen: Jul 04, 2017 Reason for Hospitalization: Dizziness Present Illness HPI 57 yo gentleman with pmhx DM II HTN ashtma and CVA/TIA who presents to [facility] with complaint of acute dizziness which occurs when he stands up from a seated position especially in the morning after taking his HTN meds The patient states that he has had dizziness whenever he sits up from a seated position, and over the last few months he has had a few falls according to him at home after he wakes up from sleep. The most recent fall he admits to occurred yesterday according to the patient he stood up susbsequently felt very=dizzy and then fell, denies any head injury or headache. Denies any chest pain or shortness of breath, no complaint of recent fever or chills or recent illness. Patient admits that he hasn't seen his primary care doctor in 6 months though gets automatic refills through his pharmacy. A computed tomography of the patients head has been requested pending result, the patient will be under observation until life threatening causes for his dizziness can be excluded. Patient states he has a primary care doctor who manages his HTN and diabetes, and he says he has been taking his medications as prescribed. Allergies: Coded Allergies: LISINOPRIL (Verified Allergy, Unknown, 07/04/17) Medication History Scheduled Aspirin* (Aspir 81*), 81 MG ORAL DAILY, (Reported) Hydrochlorothiazide* (Hydrochlorothiazide*), 25 MG ORAL DAILY, (Reported) Losartan Potassium* (Losartan Potassium*), 50 MG ORAL DAILY, (Reported) Losartan Potassium* (Losartan Potassium*), 25 MG ORAL DAILY, (Reported) Metformin Hcl* (Metformin Hcl*), 1,000 MG ORAL EVERY 2 HOURS, (Reported) Pantoprazole* (Protonix*), 40 MG ORAL DAILY, (Reported) Scheduled PRN Acetaminophen With Codeine (T#3) (Tylenol #3 Tab*), 1 TAB ORAL Q4H PRN Hydrocodone Bit/Acetaminophen 5-325* (Belen 5-325*), 1 TAB ORAL Q4H PRN for For Pain Miscellaneous Medications Unable to Obtain Medications (Unable To Obtain Meds), (Reported) Patient History Healthcare decision maker Resuscitation status Advanced Directive on File Past Medical/Surgical History Past Medical/Surgical History: (1) Food poisoning (2) Constipation (3) Appendicitis with abscess (4) Intra-abdominal abscess (5) HTN (hypertension) (6) Appendicitis with perforation (7) Toothache (8) Asthma (9) Asthmatic bronchitis with exacerbation (10) Esophageal perforation (11) Abdominal pain (12) Diabetes mellitus (13) HTN (hypertension) (14) Well adolescent visit with abnormal findings Review of Systems Neurological: Reports: dizziness Physical Exam General Appearance: no apparent distress Lines, tubes and drains: peripheral HEENT: normocephalic, atraumatic, anicteric, PERRL Neck: non-tender, supple, normal inspection Respiratory/Chest: chest wall non-tender, lungs clear, normal breath sounds, no respiratory distress, no accessory muscle use Breasts: no masses Cardiovascular/Chest: normal peripheral pulses, normal rate, regular rhythm, no JVD Abdomen: normal bowel sounds, non tender, soft, no organomegaly, no mass Genitourinary/Rectal: normal genital exam, normal rectal exam Extremities: normal range of motion, non-tender, normal inspection, no calf tenderness Skin Exam: normal pigmentation, warm/dry Neurologic: event sales manager II-XII grossly normal, no motor/sensory deficits Last 24 Hour Vital Signs Date Time Temp Pulse Resp B/P (MAP) Pulse Ox O2 Delivery O2 Flow Rate FiO2 07/04/17 17:55 98.4 83 16 145/100 100 Room Air 07/04/17 16:15 98.4 83 16 145/100 100 Room Air 07/04/17 15:09 98.4 90 18 152/104 96 Room Air Intake and Output 07/04/17 07/05/17 19:00 07:00 Intake Total 0 ml Balance 0 ml Intake Oral 0 ml # Bowel Movements 1 Laboratory Tests Test 07/04/17 16:00 White Blood Count 9.9 K/UL (4.8-10.8) Red Blood Count 4.87 M/UL (4.70-6.10) Hemoglobin 12.6 G/DL (14.2-18.0) L Hematocrit 41.9 % (42.0-52.0) L Mean Corpuscular Volume 86 FL (80-99) Mean Corpuscular Hemoglobin 25.8 PG (27.0-31.0) L Mean Corpuscular Hemoglobin Concent 29.9 G/DL (32.0-36.0) L Red Cell Distribution Width 11.9 % (11.6-14.8) Platelet Count 210 K/UL (150-450) Mean Platelet Volume 6.7 FL (6.5-10.1) Neutrophils (%) (Auto) 59.1 % (45.0-75.0) Lymphocytes (%) (Auto) 29.1 % (20.0-45.0) Monocytes (%) (Auto) 6.5 % (1.0-10.0) Eosinophils (%) (Auto) 4.2 % (0.0-3.0) H Basophils (%) (Auto) 1.0 % (0.0-2.0) Sodium Level 141 MMOL/L (136-145) Potassium Level 3.3 MMOL/L (3.5-5.1) L Chloride Level 103 MMOL/L (98-107) Carbon Dioxide Level 31 MMOL/L (21-32) Anion Gap 8 mmol/L (5-15) Blood Urea Nitrogen 17 mg/dL (7-18) Creatinine 1.3 MG/DL (0.55-1.30) Estimat Glomerular Filtration Rate > 60 mL/min (>60) Glucose Level 133 MG/DL (74-106) H Calcium Level 9.0 MG/DL (8.5-10.1) Total Bilirubin 0.3 MG/DL (0.2-1.0) Aspartate Amino Transf (AST/SGOT) 17 U/L (15-37) Alanine Aminotransferase (ALT/SGPT) 29 U/L (12-78) Alkaline Phosphatase 74 U/L (46-116) Total Creatine Kinase 160 U/L (26-308) Creatine Kinase MB 1.2 NG/ML (0.0-3.6) Creatine Kinase MB Relative Index 0.7 Troponin I 0.005 ng/mL (0.000-0.056) Pro-B-Type Natriuretic Peptide 71 pg/mL (0-125) Total Protein 7.0 G/DL (6.4-8.2) Albumin 3.7 G/DL (3.4-5.0) Globulin 3.3 g/dL Albumin/Globulin Ratio 1.1 (1.0-2.7) Height (Feet): 5 Height (Inches): 11.00 Weight (Pounds): 190 Medications Current Medications Medications (Trade) Dose Ordered Sig/Eda Route PRN Reason Start Time Stop Time Status Last Admin Dose Admin Acetaminophen (Tylenol) 650 mg Q4H PRN ORAL fever 07/04/17 19:00 08/03/17 18:59 UNV Al Hydroxide/Mg Hydroxide (Mylanta II) 30 ml Q6H PRN ORAL dyspepsia 07/04/17 19:00 08/03/17 18:59 UNV Albuterol/ Ipratropium (Albuterol/ Ipratropium) 3 ml EVERY 4 HOURS PRN HHN Shortness of Breath 07/04/17 19:00 07/09/17 18:59 UNV Clonidine HCl (Catapres) 0.1 mg Q4H PRN ORAL For High Blood Pressure 07/04/17 19:00 08/03/17 18:59 UNV Dextrose (Dextrose 50%) STAT PRN IV Hypoglycemia 07/04/17 19:00 08/03/17 18:59 UNV Heparin Sodium (Porcine) (Heparin 5000 units/ml) 5,000 units EVERY 12 HOURS SUBQ 07/04/17 21:00 08/03/17 20:59 UNV Lorazepam (Ativan 2mg/ml 1ml) 0.5 mg Q4H PRN IV For Anxiety 07/04/17 19:00 07/11/17 18:59 UNV Losartan Potassium (Cozaar) 25 mg DAILY ORAL 07/05/17 09:00 08/04/17 08:59 UNV Morphine Sulfate (Morphine Sulfate) 1 mg EVERY 4 HOURS PRN IVP For Pain 7-10 07/04/17 19:00 07/11/17 18:59 UNV Nitroglycerin (Ntg) 0.4 mg Q5M X 3 DOSES PRN SL Prn Chest Pain 07/04/17 19:00 08/03/17 18:59 UNV Ondansetron HCl (Zofran) 4 mg Q6H PRN IVP Nausea & Vomiting 07/04/17 19:00 08/03/17 18:59 UNV Polyethylene Glycol (Miralax) 17 gm HSPRN PRN ORAL Constipation 07/04/17 19:00 08/03/17 18:59 UNV Temazepam (Restoril) 15 mg HSPRN PRN ORAL Insomnia 07/04/17 19:00 07/11/17 18:59 UNV Assessment/Plan Status: stable, progressing Assessment/Plan Dizziness, orthostatic / postural induced Possible anti-hypertensive side effect Hx of fall denies loss of conciousness or head injury DM II poorly controlled HTN History of CVA/TIA Plan Observation Fall precautions Orthostatid blood pressures Head CT requested pending result Discussed with patient to follow up with his primary care doctor FAUSTO to adjust HTN medications POLINA CRAWFORD Jul 04, 2017 18:50
[2017-07-04] MEDS ORDERED: Albuterol/Ipratropium 3ml neb HHN PRN (19:00)
[2017-07-04] MEDS ORDERED: Nitroglycerin Subl 0.4mg tab SL PRN (19:00)
[2017-07-04] MEDS ORDERED: Mylanta II UD 30ml ORAL PRN (19:00)
[2017-07-04] MEDS ORDERED: Morphine Sulfate 2mg/ml Inj IVP PRN (19:00)
[2017-07-04] MEDS ORDERED: Miralax 17gm pkt ORAL PRN (19:00)
[2017-07-04] MEDS ORDERED: LORazepam Inj 2mg/ml 1ml IV PRN (19:00)
[2017-07-04 20:04] VITALS: BP 148/75
[2017-07-04] MEDS ORDERED: Heparin 5000 units/ml inj SUBQ SCH (21:00)
--- NOTE | 2017-07-05 05:02 | Diagnostic Imaging Report ---
Indications: Dizziness Technique: Spiral acquisitions obtained through the brain. Angled axial and coronal 5 x 5 mm slices were reconstructed. Total dose length product 1457 mGycm. CTDI vol(s) 70 mGy. Dose reduction achieved using automated exposure control Comparison: None. Findings: The atrium and temporal horn of the right lateral ventricle are dilated. There is relative decreased volume of the right temporal lobe, as well as encephalomalacia of the temporal tip. The remaining ventricles are somewhat prominent. The extra-axial CSF spaces are normal in caliber. There is a lacunar infarct of the left anterior centrum semiovale. Small subtle lacunar infarcts of the left daugherty radiata and bilateral basal ganglia are noted. Otherwise normal lee-white differentiation. No acute intracranial hemorrhage or edema. No mass effect nor midline shift. Intact calvarium. There is ethmoid sinus disease. The included orbits are unremarkable. Impression: Negative for acute intracranial bleed or mass effect Right temporal encephalomalacia, with ex vacuo dilatation of the temporal horn and atrium of the right lateral ventricle. Generalized mild central volume loss Other chronic changes, as described The CT scanner at [facility] is accredited by the [employer] and the scans are performed using protocols designed to limit radiation exposure to as low as reasonably achievable to attain images of sufficient resolution adequate for diagnostic evaluation.
--- NOTE | 2017-07-05 05:02 | Diagnostic Imaging Report ---
Indication: Shortness of breath Technique: One view of the chest Comparison: 11/07/2016 Findings: Lungs and pleural spaces are clear. Heart size is normal. Previously demonstrated PICC is no longer evident Impression: No acute process
[2017-07-05] MEDS ORDERED: Losartan 25mg tab ORAL SCH (09:00)
--- NOTE | 2017-07-05 16:25 | Discharge Summary ---
Discharge Summary Hospital Course Date of Admission Jul 04, 2017 at 16:33 Date of Discharge Jul 04, 2017 at 20:45 Admitting Diagnosis dizziness/unsteady gait HPI Leonard Hastings is a 57 year old male who was admitted on Jul 04, 2017 at 16:33 for Dizziness,Unsteady Gait Hospital Course [id number] Discharge Discharge Disposition Patient left AMA Discharge Diagnoses: Padmini Mcpherson NP Jul 05, 2017 16:25
--- NOTE | 2017-07-06 06:00 | Discharge Summary 2 SIG ---
DATE OF ADMISSION: 07/04/2017 DATE OF DISCHARGE: 07/04/2017 BRIEF HOSPITAL COURSE: The patient is a 57-year-old male, who presented to ED for evaluation of dizziness. He had history of diabetes mellitus, hypertension, asthma, CVA, and had a stroke six months ago. Since then, he had been having persistent dizziness and unsteady gait and stated that he has fallen multiple times in the last six months. Last fall was the day prior to admission. He denied any headache or blurry vision. No chest pain or shortness of breath. No other associated symptoms. On evaluation at ED, blood work showed no leukocytosis. Electrolytes were okay. Troponin was negative. EKG done showed normal sinus rhythm with no acute changes. Chest x-ray with no acute process. CT of the brain showed negative for acute intracranial bleed or mass effect. There is a right temporal encephalomalacia with ex-vacuo, dilatation of the temporal horn and atrium of the right lateral ventricle with generalized mild central volume loss. He was given aspirin. He is not a candidate for thrombolytic therapy as acuity of symptoms were questionable or were unknown. He was admitted to telemetry for dizziness, however, full treatment was not carried out as the patient signed out against medical advice. FINAL DIAGNOSES: 1. Dizziness. 2. Lacunar infarction. DISPOSITION: The patient left against medical advice. David Corea M.D. I have been assigned to dictate discharge summary on this account and I was not involved in the patient's management. Padmini Mcpherson N.P. DR: KASIA JOB#: [id number] CC: DENYS
--- NOTE | 2017-07-16 19:23 | Cardiology Report ---
APPROVED REPORT EKG Measurement Heart [id number] Normal sinus rhythm Possible Left atrial enlargement Prolonged QT Possible septal infarct, age undetermined Abnormal ECG
== END 2017-07-04 20:45 | disposition left against medical advice (07) | DRG 45 ==
LOC: EMR 16:29 → 2E 16:33 → EDBEDREQ 16:57 → 2E 18:11
DX: I63.9 Cerebral infarction, unspecified (principal); I10 Essential (primary) hypertension; R26.9 Unspecified abnormalities of gait and mobility; J45.909 Unspecified asthma, uncomplicated; Z86.73 Personal history of transient ischemic attack (TIA), and cerebral infarction without residual deficits; Z79.82 Long term (current) use of aspirin; Z91.19 Patient's noncompliance with other medical treatment and regimen
CPT/HCPCS: 36415; 70450; 71010; 80053; 82550; 82553; 83880; 84484; 85025; 93005; 99285

== ENCOUNTER 2017-11-16 14:41 | Emergency (ER) | payer OTHER ==
[~2017-11-16] VITALS: Ht 180.3 cm; Wt 83.9 kg
[~2017-11-16 14:41] MED LIST changes: +ASPIR 8181 MG ORAL; +LOSARTAN POTASS25 MG ORAL; +PROTONIX40 MG ORAL; +UNOBMED
[2017-11-16] MEDS ORDERED: TUMS200 M1 PO (14:59)
[2017-11-16] MEDS ORDERED: Albuterol ud Inhalation HHN ONE (15:15)
--- NOTE | 2017-11-16 16:00 | Emergency Room Report ---
History of Present Illness General Chief Complaint: Dyspnea/Respdistress Source: Patient Present Illness HPI 57 YO Male presents to ED c/o of wheezing and "only moving approximately 70% of air" he wants to be checked for "some sort" of obstruction. Pt. reports coughing , phlegm he is unable to cough up, and that he recently quit smoking. his symptoms have been present for 2 Months. Denies fevers, chills, swelling of the LE's, or trauma/fall. Pt. reports hx of "chronic asthma. ' Denies CP, Palpitations, LOC, AMS, dizziness, Changes in Vision, Sensation, paresthesias, or a sudden severe headache. Allergies: Coded Allergies: LISINOPRIL (Verified Allergy, Unknown, 07/04/17) Patient History Past Medical History: see triage record, DM, HTN, asthma Past Surgical History: none Pertinent Family History: none Reviewed Nursing Documentation: PMH: Agreed; PSxH: Agreed Nursing Documentation-PMH Past Medical History: No History, Except For Hx Cardiac Problems: No Hx Hypertension: Yes Hx Pacemaker: No Hx Asthma: Yes - Since age 4 Hx COPD: Yes - 2016 Hx Diabetes: Yes - DM2 Hx Cancer: No Hx Gastrointestinal Problems: No Hx Dialysis: No History Of Psychiatric Problem: Yes - depression Hx Neurological Problems: Yes - peripheral neuropathy Hx Cerebrovascular Accident: Yes - 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 Hx Seizures: No Review of Systems All Other Systems: negative except mentioned in HPI Physical Exam Vital Signs Date Time Temp Pulse Resp B/P (MAP) Pulse Ox O2 Delivery O2 Flow Rate FiO2 11/16/17 14:51 98.1 91 16 129/81 97 Room Air 98.1 Sp02 EP Interpretation: reviewed, normal General Appearance: no apparent distress, alert, GCS 15, non-toxic Head: normocephalic, atraumatic Eyes: bilateral eye normal inspection, bilateral eye PERRL ENT: hearing grossly normal, normal voice, uvula midline, moist mucus membranes Neck: full range of motion Respiratory: chest non-tender, no rhonchi, no respiratory distress, speaking full sentences, wheezing - scant expiratory wheezes. Cardiovascular #1: regular rate, rhythm, no edema, normal capillary refill Musculoskeletal: back normal, gait/station normal, normal range of motion, non- tender Neurologic: alert, oriented x3, responsive, motor strength/tone normal, sensory intact, normal gait, speech normal, grossly normal Psychiatric: judgement/insight normal Skin: normal color, no rash, warm/dry, well hydrated Medical Decision Making PA Attestation Dr. Laar is my supervising Physician whom patient management has been discussed with. Diagnostic Impression: Primary Impression: Asthmatic bronchitis with exacerbation Qualified Codes: J45.21 - Mild intermittent asthma with (acute) exacerbation ER Course 57 YO Male presents to ED c/o of wheezing and "only moving approximately 70% of air" he wants to be checked for "some sort" of obstruction. Pt. reports coughing , phlegm he is unable to cough up, and that he recently quit smoking. his symptoms have been present for 2 Months. Denies fevers, chills, swelling of the LE's, or trauma/fall. Pt. reports hx of "chronic asthma. ' Denies CP, Palpitations, LOC, AMS, dizziness, Changes in Vision, Sensation, paresthesias, or a sudden severe headache. Ddx considered but are not limited to URI, pneumonia, PE, strep pharyngitis, meningitis. Vital signs: Pt.is afebrile VS are WNL H&PE are most consistent with bronchitis ORDERS: -CXR: WNL ED INTERVENTIONS: -Albuterol Nebs. d/w pt. conservative treatment, and to follow up with a primary care provider and braider operator referral. pt given a list of primary care clinics for follow up. d/w pt. to return to the ED with worsening or new symptoms. DISCHARGE: At this time pt. is stable for d/c to home. Will provide printed patient care instructions, and any necessary prescriptions. Care plan and follow up instructions have been discussed with the patient prior to discharge. Chest X-Ray Diagnostic Results Chest X-Ray Diagnostic Results : Chest X-Ray Ordered: Yes # of Views/Limited/Complete: 1 View Indication: Shortness of Breath EP Interpretation: Yes JERROD Xray: Interpretation reviewed, by supervising MD, and agrees with findings. Interpretation: no consolidation, no effusion, no pneumothorax, no acute cardiopulmonary disease Impression: No acute disease Electronically Signed by: Amber Michel PA-C Last Vital Signs Date Time Temp Pulse Resp B/P (MAP) Pulse Ox O2 Delivery O2 Flow Rate FiO2 11/16/17 15:35 90 20 99 Room Air 11/16/17 14:51 98.1 129/81 98.1 Disposition: HOME, SELF-CARE Condition: Stable Scripts Albuterol Sulfate* (ALBUTEROL SULFATE MDI*) 8.5 Gm Hfa.aer.ad 2 PUFF INH Q3H, #1 INH 0 Refills Prov: Amber Michel 11/16/17 Guaifenesin/Dextromethorphan (ROBITUSSIN COUGH-CHEST DM LIQ) 237 Ml Liquid 5 ML PO Q6HR, #237 ML Prov: Amber Michel 11/16/17 Referrals: [facility],REFERR[facility] (PCP) Patient Instructions: Acute Bronchitis, Chronic Obstructive Pulmonary Disease Exacerbation Additional Instructions: Take medications as directed. Follow up with a Primary Care Provider in 3-5 days, even if your symptoms have resolved. --Please review list of primary care clinics, if you do not already have a primary care provider Return sooner to ED if new symptoms occur, or current symptoms become worse. - Please note that this Emergency Department Report was dictated using [employer] patients technology software, occasionally this can lead to erroneous entry secondary to interpretation by the dictation equipment. Amber Michel Nov 16, 2017 16:00
[2017-11-16] MEDS ORDERED: ALBUTEROL SULF8.5 GM INH (16:24)
[2017-11-16] MEDS ORDERED: GUAIFENESIN1200 MG PO (16:24)
[2017-11-16] MEDS ORDERED: ROBITUSSIN COU237 M1 PO (16:24)
[2017-11-16 16:45] VITALS: BP 122/74
--- NOTE | 2017-11-16 16:51 | Diagnostic Imaging Report ---
Indication: Cough Technique: One view of the chest Comparison: 07/04/2017 Findings: Lungs and pleural spaces are clear. Heart size is normal. No significant change Impression: No acute process
== END 2017-11-16 16:45 | disposition home or self-care (01) ==
LOC: EMR 15:10
DX: J45.901 Unspecified asthma with (acute) exacerbation (principal); I10 Essential (primary) hypertension; E11.9 Type 2 diabetes mellitus without complications; J44.9 Chronic obstructive pulmonary disease, unspecified; I69.398 Other sequelae of cerebral infarction
CPT/HCPCS: 71045; 94640; 94664; 99284

== ENCOUNTER 2017-11-19 10:01 | Emergency (ER) | payer OTHER ==
[~2017-11-19] VITALS: Ht 180.3 cm; Wt 83.9 kg
[~2017-11-19 10:01] MED LIST changes: +GUAIFENESIN1200 MG PO; +ROBITUSSIN COU237 M1 PO; +TUMS200 M1 PO
[2017-11-19] MEDS ORDERED: PROMETHAZINE-C118 M1 ORAL (10:33)
[2017-11-19 10:49] VITALS: BP 134/83
[2017-11-19 10:50] VITALS: BP 134/83
--- NOTE | 2017-11-25 08:38 | Emergency Room Report ---
History of Present Illness General Chief Complaint: General Complaint Source: Patient Present Illness HPI Patient presents with complaints of cough He feels that the medication he was given is not helping his symptom Denies any fevers denies any chest pain Denies any pleurisy Denies any back or flank pain patient had recent x-ray imaging our facility Denies any blood in the sputum Allergies: Coded Allergies: LISINOPRIL (Verified Allergy, Unknown, 07/04/17) Patient History Past Medical History: see triage record Pertinent Family History: none Reviewed Nursing Documentation: PMH: Agreed; PSxH: Agreed Nursing Documentation-PMH Hx Cardiac Problems: Yes - stroke 2 years ago Hx Hypertension: Yes Hx Pacemaker: No Hx Asthma: Yes Hx COPD: Yes - 2016 Hx Diabetes: Yes Hx Cancer: No Hx Gastrointestinal Problems: No Hx Dialysis: No Hx Neurological Problems: Yes - peripheral neuropathy Hx Cerebrovascular Accident: Yes - 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 Hx Seizures: No Review of Systems All Other Systems: negative except mentioned in HPI Physical Exam Sp02 EP Interpretation: reviewed, normal General Appearance: well appearing, no apparent distress Head: normocephalic, atraumatic Eyes: bilateral eye PERRL, bilateral eye EOMI ENT: hearing grossly normal, normal pharynx, TMs + canals normal, uvula midline Neck: full range of motion, supple, no meningismus, no bony tend Respiratory: lungs clear, normal breath sounds, no rhonchi, no respiratory distress, no retraction, no accessory muscle use Cardiovascular #1: normal peripheral pulses, regular rate, rhythm, no edema, no gallop, no JVD, no murmur Gastrointestinal: normal bowel sounds, non tender, soft, no mass, no organomegaly, non-distended, no guarding, no hernia, no pulsatile mass, no rebound Genitourinary: no CVA tenderness Musculoskeletal: normal inspection Neurologic: oriented x3, responsive, retail service representative III-XII nml as tested, motor strength/ tone normal, sensory intact Psychiatric: mood/affect normal Skin: normal color, no rash, warm/dry, palpation normal Lymphatic: normal inspection, no adenopathy Medical Decision Making Diagnostic Impression: Primary Impression: uri Additional Impression: cough ER Course Patient's x-rays reviewed from recent visit It was read as negative Patient remains hemodynamically stable Saturations are good Repeat examination and lung sounds are appropriate Patient provided cough medication and will have close outpatient follow-up Status: unchanged Disposition: HOME, SELF-CARE Condition: Stable Scripts Codeine/Promethazine Hcl* (PROMETHAZINE-CODEINE SYRUP*) 118 Ml Syrup 5 ML ORAL QHS PRN for For Cough for 5 Days, ML 0 Refills Prov: Rita Agustin DO 11/19/17 Referrals: [facility]ERR[facility] (PCP) Patient Instructions: Cough, Adult, [id number] Additional Instructions: Patient is provided with the discharge instructions notified to follow up with primary doctor in the next 2-3 days otherwise return to the er with any worsening symptoms. Please note that this report is being documented using [employer] technology. This can lead to erroneous entry secondary to incorrect interpretation by the dictating instrument. Rita Agustin DO November 25, 2017 08:38
== END 2017-11-19 15:00 | disposition home or self-care (01) ==
LOC: EMR 10:37
DX: J06.9 Acute upper respiratory infection, unspecified (principal); I10 Essential (primary) hypertension; E11.9 Type 2 diabetes mellitus without complications; J44.9 Chronic obstructive pulmonary disease, unspecified; Z88.8 Allergy status to other drugs, medicaments and biological substances
CPT/HCPCS: 99283

== ENCOUNTER 2018-01-05 09:08 | Emergency (ER) | payer MEDICAID, OTHER ==
[~2018-01-05] VITALS: Ht 180.3 cm; Wt 83.9 kg
[2018-01-05 09:30] VITALS: BP 131/84
[2018-01-05 10:17] LABS: BASOPHILS % (AUTO) 1.1 % (0.0-2.0); HEMATOCRIT 46.9 % (42.0-52.0); HEMOGLOBIN 14.5 G/DL (14.2-18.0); LYMPHOCYTES % (AUTO) 26.4 % (20.0-45.0); MEAN CORPUSCULAR VOLUME 83 FL (80-99); NEUTROPHILS % (AUTO) 58.5 % (45.0-75.0); PLATELET COUNT 311 K/UL (150-450); RED BLOOD COUNT 5.66 M/UL (4.70-6.10); RED CELL DISTRIBUTION WIDTH 13.1 % (11.6-14.8); WHITE BLOOD COUNT 7.8 K/UL (4.8-10.8)
--- NOTE | 2018-01-05 10:17 | Emergency Room Report ---
History of Present Illness General Chief Complaint: General Complaint Source: Patient Present Illness HPI Patient states that he has a piece of chicken from dinner last night stuck in his throat. Patient has a history of CVA with history of a tracheostomy. He has suffered esophageal strictures and scarring and has had undergo stent placement and esophageal dilation for a narrowed esophagus. He states that he swallowed a piece of chicken last night and has not been able to pass it since. He states he is unable to even swallow water. He also has had to constantly spit as he is unable to swallow his secretions. He denies recent illness. He denies fever or chills. He denies nausea or vomiting. He denies chest pain or shortness of breath. He has no other complaints. Allergies: Coded Allergies: LISINOPRIL (Verified Allergy, Unknown, 07/04/17) Patient History Past Medical History: see triage record, CVA/TIA Past Surgical History: other - Hx of tracheostomy, Hx of esophageal dilation/ stents. 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 Hx Seizures: No Review of Systems All Other Systems: negative except mentioned in HPI Physical Exam Vital Signs Date Time Temp Pulse Resp B/P (MAP) Pulse Ox O2 Delivery O2 Flow Rate FiO2 01/05/18 09:19 98.4 88 20 131/84 92 Room Air 98.4 Sp02 EP Interpretation: reviewed, normal General Appearance: no apparent distress, alert, GCS 15, non-toxic, other - spitting Head: normocephalic, atraumatic Eyes: bilateral eye normal inspection, bilateral eye PERRL ENT: hearing grossly normal, normal pharynx, no angioedema, normal voice Neck: full range of motion, supple/symm/no masses Respiratory: chest non-tender, lungs clear, normal breath sounds, speaking full sentences Cardiovascular #1: regular rate, rhythm, no edema Gastrointestinal: normal bowel sounds, non tender, soft, non-distended, no guarding, no rebound Rectal: deferred Musculoskeletal: back normal, gait/station normal, normal range of motion, non- tender Neurologic: alert, oriented x3, responsive, motor strength/tone normal, sensory intact, speech normal Psychiatric: judgement/insight normal, memory normal, mood/affect normal, no suicidal/homicidal ideation Skin: normal color, no rash, warm/dry, well hydrated Medical Decision Making Diagnostic Impression: Primary Impression: Impacted esophageal foreign body ER Course This patient has an impacted esophageal foreign body/food bolus. He has not been swallowing his secretions. I'm concerned that this is a complete obstruction. The patient is admitted to the gastroenterology can retrieve the foreign body/food bolus.The patient's insurance company requested his transfer to a contracted facility. Laboratory Tests Test 01/05/18 10:00 White Blood Count 7.8 K/UL (4.8-10.8) Red Blood Count 5.66 M/UL (4.70-6.10) Hemoglobin 14.5 G/DL (14.2-18.0) Hematocrit 46.9 % (42.0-52.0) Mean Corpuscular Volume 83 FL (80-99) Mean Corpuscular Hemoglobin 25.5 PG (27.0-31.0) L Mean Corpuscular Hemoglobin Concent 30.8 G/DL (32.0-36.0) L Red Cell Distribution Width 13.1 % (11.6-14.8) Platelet Count 311 K/UL (150-450) Mean Platelet Volume 8.1 FL (6.5-10.1) Neutrophils (%) (Auto) 58.5 % (45.0-75.0) Lymphocytes (%) (Auto) 26.4 % (20.0-45.0) Monocytes (%) (Auto) 10.0 % (1.0-10.0) Eosinophils (%) (Auto) 4.0 % (0.0-3.0) H Basophils (%) (Auto) 1.1 % (0.0-2.0) Prothrombin Time 10.1 SEC (9.30-11.50) Prothrombin Time INR 1.0 (0.9-1.1) PTT 25 SEC (23-33) Sodium Level 141 MMOL/L (136-145) Potassium Level 4.3 MMOL/L (3.5-5.1) Chloride Level 103 MMOL/L (98-107) Carbon Dioxide Level 30 MMOL/L (21-32) Anion Gap 8 mmol/L (5-15) Blood Urea Nitrogen 16 mg/dL (7-18) Creatinine 1.4 MG/DL (0.55-1.30) H Estimate Glomerular Filtration Rate > 60 mL/min (>60) Glucose Level 99 MG/DL (74-106) Calcium Level 8.9 MG/DL (8.5-10.1) Total Bilirubin 0.8 MG/DL (0.2-1.0) Aspartate Amino Transferase (AST) 53 U/L (15-37) H Alanine Aminotransferase (ALT) 65 U/L (12-78) Alkaline Phosphatase 70 U/L (46-116) Total Protein 7.7 G/DL (6.4-8.2) Albumin 3.7 G/DL (3.4-5.0) Globulin 4.0 g/dL Albumin/Globulin Ratio 0.9 (1.0-2.7) L Chest X-Ray Diagnostic Results Chest X-Ray Diagnostic Results : Chest X-Ray Ordered: Yes # of Views/Limited/Complete: 1 View Indication: Other Interpretation: no consolidation, no effusion, no pneumothorax, no acute cardiopulmonary disease Impression: No acute disease Other X-Ray Diagnostic Results Other X-Ray Diagnostic Results : X-Ray ordered: Soft tissue neck # of Views/Limited Vs Complete: Complete Indication: Other - esophageal impaction Interpretation: other - Questionable area of esophageal fb. Last Vital Signs Date Time Temp Pulse Resp B/P (MAP) Pulse Ox O2 Delivery O2 Flow Rate FiO2 01/05/18 09:30 98.4 78 20 131/84 92 Room Air 98.4 Disposition: XFER T-TRM HOSP Condition: Stable Lorena Lara DO Jan 05, 2018 10:17
[2018-01-05 10:27] LABS: ANION GAP 8 mmol/L (5-15); BLOOD UREA NITROGEN 16 mg/dL (7-18); CARBON DIOXIDE 30 MMOL/L (21-32); CHLORIDE 103 MMOL/L (98-107); CREATININE 1.4 MG/DL (0.55-1.30); POTASSIUM 4.3 MMOL/L (3.5-5.1); SODIUM 141 MMOL/L (136-145)
[2018-01-05 10:28] LABS: CALCIUM 8.9 MG/DL (8.5-10.1)
[2018-01-05] MEDS ORDERED: Ketorolac 30mg Inj IV ONE (10:30)
[2018-01-05 10:32] LABS: ALANINE AMINOTRANSFERASE 65 U/L (12-78); ALBUMIN 3.7 G/DL (3.4-5.0); ALBUMIN/GLOBULIN RATIO 0.9 (1.0-2.7); ALKALINE PHOSPHATASE 70 U/L (46-116); ASPARTATE AMINO TRANSFERASE 53 U/L (15-37); BILIRUBIN,TOTAL 0.8 MG/DL (0.2-1.0)
--- NOTE | 2018-01-05 12:07 | Diagnostic Imaging Report ---
EXAM: XR Soft Tissue Neck CLINICAL HISTORY: FB TECHNIQUE: Frontal and lateral views of the soft tissues of the neck. COMPARISON: No relevant prior studies available. FINDINGS: Airway: Unremarkable. No abnormal narrowing. Bones/joints: Mild degenerative changes of the spine. Soft tissues: Metallic wire or staple seen in the anterior floor of the mouth on the lateral view. Normal epiglottis. Prevertebral soft tissue unremarkable. Dental: Edentulous. IMPRESSION: Metallic wire or staple seen in the anterior floor of the mouth on the lateral view.
--- NOTE | 2018-01-05 12:08 | Diagnostic Imaging Report ---
EXAM: XR Chest, 2 Views CLINICAL HISTORY: FB TECHNIQUE: Frontal and lateral views of the chest. COMPARISON: Chest x-ray 11/16/17 FINDINGS: Lungs: Mild interstitial prominence bilaterally, may be chronic versus a mild edema or infiltrate. No focal consolidation. No radiopaque foreign body. Airway patent. Pleural space: Unremarkable. No pneumothorax. Heart: Unremarkable. No cardiomegaly. Mediastinum: Unremarkable. No radiopaque foreign body. Bones/joints: Unremarkable. IMPRESSION: 1. No radiopaque foreign body. 2. Mild interstitial prominence bilaterally, may be chronic versus a mild edema or infiltrate. No focal consolidation.
[2018-01-05 13:10] VITALS: BP 128/80
[2018-01-05 15:40] VITALS: BP 128/80
== END 2018-01-05 15:49 | disposition short-term general hospital (02) ==
LOC: EMR 09:40
DX: T17.228A Food in pharynx causing other injury, initial encounter (principal); X58.XXXA Exposure to other specified factors, initial encounter; Y92.9 Unspecified place or not applicable; I10 Essential (primary) hypertension; J44.9 Chronic obstructive pulmonary disease, unspecified; Z86.73 Personal history of transient ischemic attack (TIA), and cerebral infarction without residual deficits
CPT/HCPCS: 36415; 70360; 71046; 80053; 85025; 85610; 85730; 96360; 96361; 96374; 99284; J1885

== ENCOUNTER 2018-09-25 13:59 | Emergency (ER) | payer MEDICAID ==
[~2018-09-25] VITALS: Ht 177.8 cm; Wt 84.8 kg
[2018-09-25 14:01] VITALS: BP 161/91
[2018-09-25] MEDS ORDERED: UNOBMED (14:07)
[2018-09-25] MEDS ORDERED: LOSARTAN POTASS25 MG ORAL (14:07)
--- NOTE | 2018-09-25 14:23 | NUR ---
ED Nurse Note: PT. AAOX4. AMBULATORY. CAME IN TO ER DUE TO PAINFUL PRODUCTIVE COUGH X 5 WEEKS WITH YELLOW MUCUS.
--- NOTE | 2018-09-25 14:46 | Emergency Room Report ---
History of Present Illness General Chief Complaint: Upper Respiratory Illness Source: Patient Present Illness HPI 58-year-old male presents to emergency Department complaining of productive cough for over 2 weeks. Patient states that he has a history of bronchitis and he is also a smoker. Patient denies fevers, chills, swelling lower extremities , chest pain or shortness of breath. Patient reports that his cough is worse at night and he has moderate amount of phlegm. Patient denies history of GERD. Patient states that he has had atypical pneumonia several times in the past. Denies ill contacts or recent travel. He states he did not receive this year's flu vaccination. Denies pain, no aggravating or alleviating factors. Allergies: Coded Allergies: LISINOPRIL (Verified Allergy, Unknown, 09/25/18) Patient History Past Medical History: see triage record Past Surgical History: none Pertinent Family History: none Reviewed Nursing Documentation: PMH: Agreed; PSxH: Agreed Nursing Documentation-PMH Past Medical History: No History, Except For Hx Cardiac Problems: Yes Hx Hypertension: Yes Hx Pacemaker: No Hx Asthma: Yes Hx COPD: Yes - 2016 Hx Diabetes: Yes Hx Cancer: No Hx Gastrointestinal Problems: No Hx Dialysis: No Hx Neurological Problems: Yes - PERIPHERAL NEUROPATHY Hx Cerebrovascular Accident: Yes - HX STROKE 2016 Hx Seizures: No Review of Systems All Other Systems: negative except mentioned in HPI Physical Exam Vital Signs Date Time Temp Pulse Resp B/P (MAP) Pulse Ox O2 Delivery O2 Flow Rate FiO2 09/25/18 14:01 98.1 70 16 161/91 98 Room Air Sp02 EP Interpretation: reviewed, normal General Appearance: no apparent distress, alert, GCS 15, non-toxic Head: normocephalic, atraumatic Eyes: bilateral eye normal inspection, bilateral eye PERRL ENT: hearing grossly normal, normal voice Neck: full range of motion Respiratory: chest non-tender, lungs clear, speaking full sentences, wheezing - Declines breathing treatment Cardiovascular #1: regular rate, rhythm, no edema Musculoskeletal: back normal, gait/station normal, normal range of motion, non- tender Neurologic: alert, oriented x3, responsive, motor strength/tone normal, sensory intact, speech normal, grossly normal Psychiatric: judgement/insight normal Skin: normal color, no rash, warm/dry, well hydrated Lymphatic: no adenopathy Medical Decision Making PA Attestation Dr. melo is my supervising Physician whom patient management has been discussed with. Diagnostic Impression: Primary Impression: Atypical pneumonia ER Course 58-year-old male presents to emergency Department complaining of productive cough for over 2 weeks. Patient states that he has a history of bronchitis and he is also a smoker. Patient denies fevers, chills, swelling lower extremities , chest pain or shortness of breath. Patient reports that his cough is worse at night and he has moderate amount of phlegm. Patient denies history of GERD. Patient states that he has had atypical pneumonia several times in the past. Denies ill contacts or recent travel. He states he did not receive this year's flu vaccination. Denies pain, no aggravating or alleviating factors. Ddx considered but are not limited to URI, pneumonia, PE, strep pharyngitis, meningitis. Vital signs: Pt.is afebrile VS are WNL H&PE are most consistent with bronchitis- chronic and suspicion for atypical pneumonia as patient has had productive cough for over 2 weeks - ORDERS: none required at this time, the diagnosis is clinical ED INTERVENTIONS: None required at this time. DISCHARGE: At this time pt. is stable for d/c to home. Will provide printed patient care instructions, and any necessary prescriptions. Care plan and follow up instructions have been discussed with the patient prior to discharge. Last Vital Signs Date Time Temp Pulse Resp B/P (MAP) Pulse Ox O2 Delivery O2 Flow Rate FiO2 09/25/18 14:01 70 16 Room Air 09/25/18 14:01 98.1 161/91 98 Status: improved Disposition: HOME, SELF-CARE Condition: Stable Patient Instructions: Upper Respiratory Infection, Adult Additional Instructions: Take medications as directed. Follow up with a Primary Care Provider in 3-5 days, even if your symptoms have resolved. --Please review list of primary care clinics, if you do not already have a primary care provider Return sooner to ED if new symptoms occur, or current symptoms become worse. Do not drink alcohol, drive, or operate heavy machinery while taking Cough Syrup as this may cause drowsiness. - Please note that this Emergency Department Report was dictated using [employer] creative officer technology software, occasionally this can lead to erroneous entry secondary to interpretation by the dictation equipment. Amber Michel Sep 25, 2018 14:46
[2018-09-25] MEDS ORDERED: PROMETHAZINE-C118 M1 ORAL (14:49)
[2018-09-25] MEDS ORDERED: ZITHROMAX250 MG ORAL (14:49)
[2018-09-25] MEDS ORDERED: GUAIFENESIN1200 MG PO (14:49)
[2018-09-25 15:00] VITALS: BP 155/62
--- NOTE | 2018-09-25 15:01 | NUR ---
ED Nurse Note: PT. AAOX4. AMBULATORY. LEFT WITH STEADY GAIT..REGARDING D/C PAPERS AND PRESCRIPTIONS. PT. VERBALIZED THE UNDERSTANDING OF THE TEACHING. ID ARMBAND REMOVED. LEFT WITH ALL BELONGINGS.
== END 2018-09-25 15:00 | disposition home or self-care (01) ==
LOC: EMR 14:35
DX: J18.9 Pneumonia, unspecified organism (principal); I10 Essential (primary) hypertension; J45.909 Unspecified asthma, uncomplicated; E11.9 Type 2 diabetes mellitus without complications; Z86.73 Personal history of transient ischemic attack (TIA), and cerebral infarction without residual deficits
CPT/HCPCS: 99282

== ENCOUNTER 2018-10-11 12:06 | Emergency (ER) | payer MEDICAID ==
[~2018-10-11] VITALS: Ht 180.3 cm; Wt 86.2 kg
[~2018-10-11 12:06] MED LIST changes: +ZITHROMAX250 MG ORAL
--- NOTE | 2018-10-11 12:20 | NUR ---
ED Nurse Note: Patient walked into ED c/o upper respiratory illness, sandi states that hes been experiencing a cough for the past 2 weeks, after auscultation, patient does have wheezes bilateral lungs. patient is alert and oriented x4, ambulatory with a steady gait, VSS
[2018-10-11] MEDS ORDERED: AMLODIPINE BESYL5 MG ORAL (12:22)
[2018-10-11] MEDS ORDERED: ATORVASTATIN CA20 MG ORAL (12:22)
[2018-10-11 12:27] VITALS: BP 146/85
--- NOTE | 2018-10-11 12:42 | Emergency Room Report ---
History of Present Illness General Chief Complaint: Upper Respiratory Illness Source: Patient Present Illness HPI 58-year-old male presents to the emergency department complaining of 6 out of 10 in severity persistent painful cough with mucus production 4 weeks. Patient was seen here in the emergency department 2 weeks ago with the same complaint stating that his onset of symptoms were 2 weeks prior. Patient denies fevers or chills he finished a course of antibiotics states that his symptoms improved slightly however they never went away and eventually they progress back to what they are today. Patient reports that he is also a smoker he reports history of asthma denies sore throat, ear pain, nasal congestion, rhinorrhea or headaches. Patient denies chest pain or palpitations. He states that he notices his his symptoms when he is at rest as well as when he has been active. Allergies: Coded Allergies: LISINOPRIL (Verified Allergy, Unknown, 09/25/18) Patient History Past Medical History: see triage record, asthma Past Surgical History: none, unable to obtain Pertinent Family History: none Social History: Reports: smoking - current smoker Reviewed Nursing Documentation: PMH: Agreed; PSxH: Agreed Nursing Documentation-PMH Past Medical History: No History, Except For Hx Cardiac Problems: Yes Hx Hypertension: Yes Hx Pacemaker: No Hx Asthma: Yes Hx COPD: Yes - 2016 Hx Diabetes: Yes Hx Cancer: No Hx Gastrointestinal Problems: No Hx Dialysis: No Hx Neurological Problems: Yes - PERIPHERAL NEUROPATHY Hx Cerebrovascular Accident: Yes - HX STROKE 2016 Hx Seizures: No Review of Systems All Other Systems: negative except mentioned in HPI Physical Exam Vital Signs Date Time Temp Pulse Resp B/P (MAP) Pulse Ox O2 Delivery O2 Flow Rate FiO2 10/11/18 12:18 98.1 83 14 146/85 97 Room Air Sp02 EP Interpretation: reviewed, normal General Appearance: no apparent distress, alert, GCS 15, non-toxic Head: normocephalic, atraumatic Eyes: bilateral eye normal inspection, bilateral eye PERRL ENT: hearing grossly normal, normal voice Neck: full range of motion Respiratory: chest non-tender, lungs clear, normal breath sounds, speaking full sentences, wheezing Cardiovascular #1: regular rate, rhythm, no edema Musculoskeletal: back normal, gait/station normal, normal range of motion, non- tender Neurologic: alert, oriented x3, responsive, motor strength/tone normal, sensory intact, speech normal, grossly normal Psychiatric: judgement/insight normal Skin: normal color, no rash, warm/dry, well hydrated Lymphatic: no adenopathy Medical Decision Making PA Attestation Dr. Agustin is my supervising Physician whom patient management has been discussed with. Diagnostic Impression: Primary Impression: Asthmatic bronchitis with exacerbation Qualified Codes: J45.41 - Moderate persistent asthma with (acute) exacerbation ER Course 58-year-old male presents to the emergency department complaining of 6 out of 10 in severity persistent painful cough with mucus production 4 weeks. Patient was seen here in the emergency department 2 weeks ago with the same complaint stating that his onset of symptoms were 2 weeks prior. Patient denies fevers or chills he finished a course of antibiotics states that his symptoms improved slightly however they never went away and eventually they progress back to what they are today. Patient reports that he is also a smoker he reports history of asthma denies sore throat, ear pain, nasal congestion, rhinorrhea or headaches. Patient denies chest pain or palpitations. He states that he notices his his symptoms when he is at rest as well as when he has been active. Ddx considered but are not limited to URI, pneumonia, PE, strep pharyngitis, meningitis. Vital signs: Pt.is afebrile VS are WNL H&PE are most consistent with bronchitis ORDERS: CXR-- WNL other than hyperinflated lungs. ED INTERVENTIONS: -Duo Nebs x 3 q 15 ----- Pt. CXR --appears to have findings consistent with COPD As pt. has had 4 weeks of cough, no response to Z-Pack, will give pt. first line therapy for bronchitis exacerbation in person with COPD which is Levaquin. -I do not identify an emergent condition at this time. With current presentation , pt. is stable for close outpatient follow up and conservative treatment. D/ w pt. to return promptly to ED with worsening or new symptoms.- Pt. verbalizes' understanding and agreement with proposed treatment plan.proposed treatment plan. DISCHARGE: At this time pt. is stable for d/c to home. Will provide printed patient care instructions, and any necessary prescriptions. Care plan and follow up instructions have been discussed with the patient prior to discharge. Chest X-Ray Diagnostic Results Chest X-Ray Diagnostic Results : Chest X-Ray Ordered: Yes # of Views/Limited/Complete: 1 View Indication: Other - persistent productive cough x 4 weeks EP Interpretation: Yes JERROD Xray: Interpretation reviewed, by supervising MD, and agrees with findings. Interpretation: no consolidation, no effusion, no pneumothorax, no acute cardiopulmonary disease, other - hyperinflated lungs Impression: No acute disease Electronically Signed by: Amber Michel PA-C Last Vital Signs Date Time Temp Pulse Resp B/P (MAP) Pulse Ox O2 Delivery O2 Flow Rate FiO2 10/11/18 12:18 98.1 83 14 146/85 97 Room Air Status: improved Disposition: HOME, SELF-CARE Condition: Stable Scripts Levofloxacin* (LEVAQUIN*) 500 Mg Tablet 500 MG ORAL DAILY for 7 Days, #7 TAB Prov: Amber Michel 10/11/18 Codeine/Promethazine Hcl* (PROMETHAZINE-CODEINE SYRUP*) 118 Ml Syrup 5 ML ORAL Q6H PRN for For Cough, #120 ML 0 Refills Prov: Amber Michel 10/11/18 Albuterol Sulfate* (ALBUTEROL SULFATE HHN*) 2.5 Mg/3 Ml Vial.neb 3 ML INH Q6H PRN for Shortness of Breath, #30 EA 0 Refills Prov: Amber Michel 10/11/18 Albuterol Sulfate* (ALBUTEROL SULFATE MDI*) 8.5 Gm Hfa.aer.ad 2 PUFF INH Q4H, #1 INH 0 Refills Prov: Amber Michel 10/11/18 Patient Instructions: Acute Bronchitis, [id number], Chronic Bronchitis Additional Instructions: Take medications as directed. Follow up with a Primary Care Provider in 3-5 days, even if your symptoms have resolved. --Please review list of primary care clinics, if you do not already have a primary care provider Return sooner to ED if new symptoms occur, or current symptoms become worse. Do not drink alcohol, drive, or operate heavy machinery while taking Cough Syrup as this may cause drowsiness. - Please note that this Emergency Department Report was dictated using [employer] Ad[employer] Solutionsdonor services manager technology software, occasionally this can lead to erroneous entry secondary to interpretation by the dictation equipment. Amber Michel Oct 11, 2018 12:42
[2018-10-11] MEDS ORDERED: Albuterol/Ipratropium 3ml neb HHN ONE ×2 (12:45→13:00)
[2018-10-11] MEDS ORDERED: ALBUTEROL SULF8.5 GM INH (13:21)
[2018-10-11] MEDS ORDERED: ALBUTEROL2.5 MG/3 M INH (13:21)
[2018-10-11] MEDS ORDERED: PROMETHAZINE-C118 M1 ORAL (13:21)
[2018-10-11] MEDS ORDERED: LEVAQUIN500 MG ORAL (13:22)
[2018-10-11 14:15] VITALS: BP 138/81
--- NOTE | 2018-10-11 14:15 | NUR ---
ER DISCHARGE NOTE: Patient is cleared to be discharged per ERMD, pt is aox4, on room air, with stable vital signs. pt was given dc and prescription instructions, pt was able to verbalize understanding, pt id band removed without complications. pt is able to ambulate with steady gait. pt took all belongings.
--- NOTE | 2018-10-11 18:13 | Diagnostic Imaging Report ---
Indication: Chest pain Technique: One view of the chest Comparison: 01/05/2018 Findings: Lungs and pleural spaces are clear. Heart size is normal . No significant interim change Impression: No acute process
== END 2018-10-11 14:15 | disposition home or self-care (01) ==
LOC: EMR 13:20
DX: J45.901 Unspecified asthma with (acute) exacerbation (principal); I10 Essential (primary) hypertension; E11.9 Type 2 diabetes mellitus without complications; Z86.73 Personal history of transient ischemic attack (TIA), and cerebral infarction without residual deficits; G62.9 Polyneuropathy, unspecified; F17.200 Nicotine dependence, unspecified, uncomplicated
CPT/HCPCS: 71045; 94640; 94664; 99284; J7620

== ENCOUNTER 2018-10-30 11:04 | Emergency (ER) | payer MEDICAID ==
[~2018-10-30] VITALS: Ht 177.8 cm; Wt 86.2 kg
[~2018-10-30 11:04] MED LIST changes: +ALBUTEROL2.5 MG/3 M INH; +AMLODIPINE BESYL5 MG ORAL; +ATORVASTATIN CA20 MG ORAL; +LEVAQUIN500 MG ORAL
[2018-10-30 11:10] VITALS: BP 137/87
--- NOTE | 2018-10-30 11:19 | NUR ---
ED Nurse Note:# Patient walked into ED, patient states that he got a cut on his right dai about 5 days ago, cut by a dilip chair. patient reports warmth and tenderness, some swelling, pain on the right dai radiating to his right foot. patient is alert awake x4 ambulatory.
--- NOTE | 2018-10-30 11:42 | Emergency Room Report ---
History of Present Illness General Chief Complaint: Laceration Source: Patient Present Illness HPI Patient smokes. Patient presents with a scrape to his right lower leg anteriorly. This happened with a dilip piece of metal. There is some swelling and redness around the scrape. He denies fevers or chills. There is no calf tenderness. No weakness or numbness. He initially states that his tetanus is greater than 10 years but then changes his story stating its in the last 2 years. The pain is rated 6/10, aching and nonradiating. Wheezing = chronic. No productive phlegm. No chest pain. History of asthma. The patient smokes. He has inhalers and nebulizer at home. History of hypertension and prior stroke. History of diabetes. No polyuria or polydipsia. Patient takes metformin No chest pain, palpitations, nausea, vomiting, diarrhea, dysuria, abdominal pain , depression, visual changes, headache. Allergies: Coded Allergies: LISINOPRIL (Verified Allergy, Unknown, 09/25/18) Patient History Past Medical History: see triage record Past Surgical History: other - post trach Social History: Reports: smoking Social History Narrative From home Reviewed Nursing Documentation: PMH: Agreed; PSxH: Agreed Nursing Documentation-PMH Past Medical History: No History, Except For Hx Hypertension: Yes Hx Asthma: Yes Hx Cerebrovascular Accident: Yes - 2016 Review of Systems All Other Systems: negative except mentioned in HPI Physical Exam Vital Signs Date Time Temp Pulse Resp B/P (MAP) Pulse Ox O2 Delivery O2 Flow Rate FiO2 10/30/18 11:10 98.6 86 16 137/87 99 Room Air Sp02 EP Interpretation: reviewed, normal General Appearance: well appearing, no apparent distress, GCS 15 Head: normocephalic, atraumatic Eyes: bilateral eye normal inspection, bilateral eye PERRL ENT: hearing grossly normal, normal voice, moist mucus membranes Neck: full range of motion, supple Respiratory: no respiratory distress, speaking full sentences, wheezing, expiration Cardiovascular #1: regular rate, rhythm Cardiovascular #2: 2+ radial (R), 2+ dorsalis pedis (R) Gastrointestinal: normal inspection Musculoskeletal: back normal, digits/nails normal, gait/station normal, normal range of motion, no calf tenderness, swelling - Anterior tibia Neurologic: alert, oriented x3, grossly normal Psychiatric: mood/affect normal Skin: abrasions - Right anterior tibiaWith surrounding erythema no fluctuance Medical Decision Making Diagnostic Impression: Primary Impression: Cellulitis Qualified Codes: L03.115 - Cellulitis of right lower limb Additional Impression: Opiate use ER Course Patient presents with a scrape on his right mid tibial area from a dilip surface. Differential includes cellulitis versus abrasion. The erythema suggest infection. He states his tetanus is up-to-date. Antibiotics and antibiotic ointment are indicated. He also has COPD which appears to be stable at this time. No imaging is indicated. Patient stable for outpatient observation and treatment. Cures checked after discharge. Patient with 30-day supply of [place] prescribed October 11. Last Vital Signs Date Time Temp Pulse Resp B/P (MAP) Pulse Ox O2 Delivery O2 Flow Rate FiO2 10/30/18 12:20 97.5 80 16 133/68 98 Room Air Status: improved Disposition: HOME, SELF-CARE Condition: Improved Scripts Tramadol Hcl* (ULTRAM*) 50 Mg Tablet 50 MG ORAL Q6H PRN for For Pain, #8 TAB 0 Refills Prov: Johnnie Conway MD 10/30/18 Bacitracin (Bacitracin) 28.4 Gm Oint...g. 1 APPLIC TOPIC BID, #20 GM Prov: Johnnie Conway MD 10/30/18 Trimethoprim/Sulfamethoxazole (Bactrim Ds Tablet) 1 Each Tablet 1 TAB ORAL TWICE A DAY, #14 TAB Prov: Johnnie Conway MD 10/30/18 Johnnie Conway MD Oct 30, 2018 11:42
[2018-10-30] MEDS ORDERED: Bactrim-DS 1 tab ORAL ONE (11:45)
[2018-10-30] MEDS ORDERED: Bacitracin Oint UD TOPIC ONE (11:45)
[2018-10-30] MEDS ORDERED: TRAMADOL HCL50 MG ORAL (12:11)
[2018-10-30] MEDS ORDERED: BACITRACIN15 GM TOPIC (12:11)
[2018-10-30] MEDS ORDERED: BACTRIM-DS1 EA ORAL (12:11)
[2018-10-30 12:20] VITALS: BP 133/68
--- NOTE | 2018-10-30 12:20 | NUR ---
ER DISCHARGE NOTE: Patient is cleared to be discharged per ERMD, pt is aox4, on room air, with stable vital signs. pt was given dc and prescription instructions and extra bandages were provided per pt's request, pt was able to verbalize understanding, pt id band removed. pt is able to ambulate with steady gait. pt took all belongings.
== END 2018-10-30 12:20 | disposition home or self-care (01) ==
LOC: MERGE 11:04 → EMR 11:40
DX: L03.115 Cellulitis of right lower limb (principal); F11.90 Opioid use, unspecified, uncomplicated; Z88.8 Allergy status to other drugs, medicaments and biological substances; F17.200 Nicotine dependence, unspecified, uncomplicated; I10 Essential (primary) hypertension; Z86.73 Personal history of transient ischemic attack (TIA), and cerebral infarction without residual deficits; E11.9 Type 2 diabetes mellitus without complications
CPT/HCPCS: 99282

== ENCOUNTER 2020-01-13 13:41 | Inpatient (IN) | payer MEDICAID ==
[~2020-01-13] VITALS: Ht 180.3 cm; Wt 87.5 kg
[~2020-01-13 13:41] MED LIST changes: +BACITRACIN15 GM TOPIC; +BACTRIM-DS1 EA ORAL; +LR 1000ml ONE; +Lidocaine 1% MPF 10mg/ml 5ml ONE; +TRAMADOL HCL50 MG ORAL
[2020-01-13 14:42] VITALS: BP 161/88
--- NOTE | 2020-01-13 15:27 | Diagnostic Imaging Report ---
EXAM: CT CT Neck no Contrast CLINICAL HISTORY: Throat pain. Patient reports possible "chicken stuck in esophagus x2 days". TECHNIQUE: Axial images obtained through the neck without administration of contrast. Coronal and sagittal reformatted images were also obtained. All CT scans at this facility are performed using dose modulation techniques as appropriate to a performed exam including the following: automated exposure control with adjustment of the mA and/or kV according to patient size. RADIATION DOSE: CTDIvol: 6.7 mGy DLP: 238.3 mGy-cm Dose information generated by the CT scanner is available in PACS. COMPARISON: None FINDINGS: Visualized portions of the nasal sinuses appears normally pneumatized and aerated. Pharyngeal and parapharyngeal soft tissue space is normal. Franklin tonsillar pillars are unremarkable. The salivary glands are symmetric bilaterally. There are several small scattered lymph nodes noted but no pathologic adenopathy seen presently. The base of the tongue and floor of the mouth region appears unremarkable. Epiglottic and vocal cord regions also normal. The thyroid appears homogeneous. There is no supraclavicular adenopathy. In the upper esophagus within the chest, there is some food debris noted approximately at the level of the aortic arch. Air-fluid level noted just cephalad to this level. IMPRESSION: No acute abnormality in the soft tissue of the neck. However upper esophagus within the chest contains some food debris and fluid approximately the level of the aortic arch. Question possible more distal downstream obstruction of the esophagus.
--- NOTE | 2020-01-13 15:32 | Emergency Room Report ---
History of Present Illness General Chief Complaint: General Complaint Source: Patient (Amber Michel) Present Illness HPI 59 YO male w. hx of HTN, COPD and Stroke in 2017 with residual dysphagia presents to the ED c/o 5/10 in severity Throat discomfort and difficulty swallowing foods x 2 days. Pt. reports he was eating chicken breast and believes some is stuck in his esophagus as this has happened in the past. Pt. reports sometimes lying flat helps his symptoms. He reports he is able to tolerate his own secretions but very minimally. He reports when swallowing he feels "gurgling sensation and spits up". He denies SOB, cough, wheezing, difficulty speaking or changes in his voice. He denies vomiting. He denies abdominal pain. (Amber Michel) Allergies: Coded Allergies: LISINOPRIL (Verified Allergy, Unknown, 09/25/18) COVID-19 Screening Contact w/high risk pt: No Recent Travel to affected area: No Experienced COVID-19 symptoms?: No COVID-19 Testing performed [employer]: Yes - PENDING result COVID-19 Screening: PUI COVID-19 COVID-19 Testing Source: nasopharyngeal (Amber Michel) Patient History Past Medical History: see triage record Past Surgical History: other - trach, G-tube Pertinent Family History: none Reviewed Nursing Documentation: PMH: Agreed; PSxH: Agreed (Amber Michel) Nursing Documentation-PMH Past Medical History: No History, Except For Hx Cardiac Problems: Yes Hx Hypertension: Yes Hx Pacemaker: No Hx Asthma: Yes Hx COPD: Yes - 2016 Hx Diabetes: No Hx Cancer: No Hx Gastrointestinal Problems: No Hx Dialysis: No History Of Psychiatric Problem: No Hx Neurological Problems: Yes - PERIPHERAL NEUROPATHY Hx Cerebrovascular Accident: Yes - 2016 Hx Seizures: No (Amber Michel) Review of Systems All Other Systems: negative except mentioned in HPI (Amber Michel) Physical Exam Vital Signs Date Time Temp Pulse Resp B/P (MAP) Pulse Ox O2 Delivery O2 Flow Rate FiO2 01/13/20 14:19 99.3 68 16 161/88 (112) 97 Room Air Sp02 EP Interpretation: reviewed, normal General Appearance: no apparent distress, alert, GCS 15, non-toxic Head: normocephalic, atraumatic Eyes: bilateral eye normal inspection, bilateral eye PERRL ENT: hearing grossly normal, normal pharynx, normal voice, uvula midline, moist mucus membranes, other - No stridor Neck: full range of motion, other - no stridor Respiratory: chest non-tender, lungs clear, normal breath sounds, no respiratory distress, no wheezing, speaking full sentences Cardiovascular #1: regular rate, rhythm Gastrointestinal: normal bowel sounds, non tender, soft, non-distended, no guarding Musculoskeletal: normal range of motion, gait/station normal, non-tender Neurologic: alert, motor strength/tone normal, oriented x3, sensory intact, responsive, speech normal Psychiatric: judgement/insight normal Skin: no rash Lymphatic: no adenopathy (Amber Michel) Medical Decision Making PA Attestation Dr. Oliver is my supervising Physician whom patient management has been discussed with. (Amber Michel) Medicare Attestation Please note that the patient was seen and evaluated by myself as well I do agree with exam and work-up findings are consistent with likely mid esophageal Obstruction Patient further IV hydrated at this time is not actively vomiting or in acute distress and is being requested for transfer secondary to insurance purposes, Patient is medically stable to transfer and continue care at contracted facility (Rita Agustin DO) Diagnostic Impression: Primary Impression: Esophageal obstruction due to food impaction ER Course 59 YO male w. hx of HTN, COPD and Stroke in 2017 with residual dysphagia presents to the ED c/o 11/29 in severity Throat discomfort and difficulty swallowing foods x 2 days. Pt. reports he was eating chicken breast and believes some is stuck in his esophagus as this has happened in the past. Pt. reports sometimes lying flat helps his symptoms. He reports he is able to tolerate his own secretions but very minimally. He reports when swallowing he feels "gurgling sensation and spits up". He denies SOB, cough, wheezing, difficulty speaking or changes in his voice. He denies vomiting. He denies abdominal pain. Ddx considered but are not limited to ST FB, esophagitis, esophageal obstruction,airway obstruction, retropharyngeal abscess, achalasia just to name a few. Vital signs: are WNL, pt. is afebrile H&PE are most consistent with possible retained FB in throat secondary to esophageal obstruction ORDERS: -CBC: WNl -CMP: Cr. 1.7, BUN 22, mildly elevated LFT's. - CT Neck without Contrast & CT Chest, abdomen and Pelvis without contrast:: Questionable more distal downstream obstruction f the esophagus due to some food debris and fluid within the esophagus at the level of the aortic arch. - ED INTERVENTIONS: -1 Liter NS Bolus IV DISPOSITION: at this time pt. will be admitted to [facility] for Esophageal obstruction evaluation and to continue pt. care management. Labs Test 01/13/20 18:46 White Blood Count 7.2 K/UL (4.8-10.8) Red Blood Count 5.82 M/UL (4.70-6.10) Hemoglobin 15.7 G/DL (14.2-18.0) Hematocrit 51.8 % (42.0-52.0) Mean Corpuscular Volume 89 FL (80-99) Mean Corpuscular Hemoglobin 27.1 PG (27.0-31.0) Mean Corpuscular Hemoglobin Concent 30.4 G/DL (32.0-36.0) Red Cell Distribution Width 16.4 % (11.6-14.8) Platelet Count 191 K/UL (150-450) Mean Platelet Volume 8.3 FL (6.5-10.1) Neutrophils (%) (Auto) 61.0 % (45.0-75.0) Lymphocytes (%) (Auto) 22.7 % (20.0-45.0) Monocytes (%) (Auto) 12.2 % (1.0-10.0) Eosinophils (%) (Auto) 2.3 % (0.0-3.0) Basophils (%) (Auto) 1.8 % (0.0-2.0) Sodium Level 145 MMOL/L (136-145) Potassium Level 4.1 MMOL/L (3.5-5.1) Chloride Level 103 MMOL/L (98-107) Carbon Dioxide Level 28 MMOL/L (21-32) Anion Gap 14 mmol/L (5-15) Blood Urea Nitrogen 22 mg/dL (7-18) Creatinine 1.7 MG/DL (0.55-1.30) Estimat Glomerular Filtration Rate 50.3 mL/min (>60) Glucose Level 105 MG/DL (74-106) Calcium Level 9.3 MG/DL (8.5-10.1) Total Bilirubin 0.6 MG/DL (0.2-1.0) Aspartate Amino Transf (AST/SGOT) 77 U/L (15-37) Alanine Aminotransferase (ALT/SGPT) 111 U/L (12-78) Alkaline Phosphatase 93 U/L (46-116) Total Protein 9.1 G/DL (6.4-8.2) Albumin 4.2 G/DL (3.4-5.0) Globulin 4.9 g/dL Albumin/Globulin Ratio 0.9 (1.0-2.7) (Amber Michel) CT/MRI/US Diagnostic Results CT/MRI/US Diagnostic Results #1: Imaging Test Ordered: CT Neck No Contrast Impression "IMPRESSION: No acute abnormality in the soft tissue of the neck. However upper esophagus within the chest contains some food debris and fluid approximately the level of the aortic arch. Question possible more distal downstream obstruction of the esophagus." -- Per official radiology report- Please see report for specific details. CT/MRI/US Diagnostic Results #2: Imaging Test Ordered: CT Chest, Abdomen and Pelvis without contrast Impression "IMPRESSION: 1. Study limited due to lack of IV contrast. 2. Possible impacted food bolus versus other soft tissue thickening in the midesophagus as above. 3. Recommend endoscopy. 4. Recommend follow-up unenhanced CT chest in 3 months to document resolution probably in excess or inflammatory small groundglass area in the mid lingula as above. 5. Gynecomastia. Correlate with exposure history and presentation, has etiologies are myriad. IMPRESSION: 1. Study limited due to lack of IV contrast. 2. Urinary bladder wall thickening. This could be incidental, correlate clinically to exclude infectious or inflammatory cystitis. 3. Gallbladder sludge without findings to suggest acute cholecystitis. 4. Prominent colonic stool burden, which could be a cause for pain. 5. Otherwise no acute abnormality definitively identified to account for patient presentation."---- Per official radiology report- Please see report for specific details. (Amber Michel) Last Vital Signs Date Time Temp Pulse Resp B/P (MAP) Pulse Ox O2 Delivery O2 Flow Rate FiO2 01/13/20 14:42 99.3 16 161/88 97 Room Air 01/13/20 14:42 68 (Amber Michel) Disposition: ADMITTED INPATIENT Condition: Serious Signed Out To: Dr. Agustin pending official transfer of care to admitting physician. (Amber Michel) Amber Michel Jan 13, 2020 15:32 Rita Agustin DO Jan 13, 2020 20:53
[2020-01-13] MEDS ORDERED: Varibar Thin Liquid powder 148gm MC PRN (16:15)
[2020-01-13] MEDS ORDERED: Barium EZ HD MC PRN (16:15)
[2020-01-13] MEDS ORDERED: Barium EZ Gas II granules MC PRN (16:15)
[2020-01-13 18:57] LABS: BASOPHILS % (AUTO) 1.8 % (0.0-2.0); EOSINOPHILS % (AUTO) 2.3 % (0.0-3.0); HEMATOCRIT 51.8 % (42.0-52.0); HEMOGLOBIN 15.7 G/DL (14.2-18.0); LYMPHOCYTES % (AUTO) 22.7 % (20.0-45.0); MEAN CORPUSCULAR VOLUME 89 FL (80-99); MONOCYTES % (AUTO) 12.2 % (1.0-10.0); PLATELET COUNT 191 K/UL (150-450); RED BLOOD COUNT 5.82 M/UL (4.70-6.10); RED CELL DISTRIBUTION WIDTH 16.4 % (11.6-14.8); WHITE BLOOD COUNT 7.2 K/UL (4.8-10.8)
--- NOTE | 2020-01-13 19:01 | Diagnostic Imaging Report ---
EXAM: CT Abdomen and Pelvis Without Intravenous Contrast CLINICAL HISTORY: PAIN TECHNIQUE: Axial computed tomography images of the abdomen and pelvis without intravenous contrast. CTDI is 5 mGy and DLP is 360 mGy-cm. One or more of the following dose reduction techniques were used: automated exposure control, adjustment of the mA and/or kV according to patient size, use of iterative reconstruction technique. Coronal and sagittal reformatted images were created and reviewed. COMPARISON: No relevant prior studies available. FINDINGS: Limitations: Study limited due to lack of IV contrast. Lung bases: Unremarkable. No mass. No consolidation. ABDOMEN: Liver: Unremarkable. Gallbladder and bile ducts: Gallbladder sludge without findings to suggest acute cholecystitis. No ductal dilation. Pancreas: Unremarkable. No ductal dilation. Spleen: Unremarkable. No splenomegaly. Adrenals: Unremarkable. No mass. Kidneys and ureters: Unremarkable. No obstructing stones. No hydronephrosis. Stomach and bowel: Prominent colonic stool burden, which could be a cause for pain. No obstruction. No mucosal thickening. PELVIS: Appendix: Likely appendectomy. Bladder: Urinary bladder wall thickening. This could be incidental, correlate clinically to exclude infectious or inflammatory cystitis. No stones. Reproductive: Unremarkable as visualized. ABDOMEN and PELVIS: Intraperitoneal space: Unremarkable. No free air. No significant fluid collection. Bones/joints: No acute fracture. No dislocation. Soft tissues: Unremarkable. Vasculature: Unremarkable. No abdominal aortic aneurysm. Lymph nodes: Unremarkable. No enlarged lymph nodes. Other findings: Mild ASVD. IMPRESSION: 1. Study limited due to lack of IV contrast. 2. Urinary bladder wall thickening. This could be incidental, correlate clinically to exclude infectious or inflammatory cystitis. 3. Gallbladder sludge without findings to suggest acute cholecystitis. 4. Prominent colonic stool burden, which could be a cause for pain. 5. Otherwise no acute abnormality definitively identified to account for patient presentation. EXAM: CT Chest Without Intravenous Contrast CLINICAL HISTORY: PAIN TECHNIQUE: Axial computed tomography images of the chest without intravenous contrast. CTDI is 5 mGy and DLP is 360 mGy-cm. One or more of the following dose reduction techniques were used: automated exposure control, adjustment of the mA and/or kV according to patient size, use of iterative reconstruction technique. COMPARISON: No relevant prior studies available. FINDINGS: Limitations: Study limited due to lack of IV contrast. Lungs: Scattered small area of groundglass attenuation and mild bronchial wall thickening left upper lobe lingula axial series 6, image 61 could represent an infectious or inflammatory process. Pleural space: Unremarkable. No pneumothorax. No significant effusion. Heart: Unremarkable. No cardiomegaly. No significant pericardial effusion. Mediastinum: Focally within the midesophagus axial series 4, image 36 is an intraluminal soft tissue attenuation structure with proximal esophageal fluid contents and distal decompression, this could represent an impacted food bolus. Some degree of esophageal wall thickening, or intraluminal mass cannot be definitively excluded on the study. Best demonstrated, sagittal series 9 image 66. Bones/joints: Unremarkable. No acute fracture. No dislocation. Soft tissues: Gynecomastia. Correlate with exposure history and presentation, has etiologies are myriad. Vasculature: Unremarkable. No thoracic aortic aneurysm. Lymph nodes: Unremarkable. No enlarged lymph nodes. IMPRESSION: 1. Study limited due to lack of IV contrast. 2. Possible impacted food bolus versus other soft tissue thickening in the midesophagus as above. 3. Recommend endoscopy. 4. Recommend follow-up unenhanced CT chest in 3 months to document resolution probably in excess or inflammatory small groundglass area in the mid lingula as above. 5. Gynecomastia. Correlate with exposure history and presentation, has etiologies are myriad.
[2020-01-13 19:09] LABS: ANION GAP 14 mmol/L (5-15); BLOOD UREA NITROGEN 22 mg/dL (7-18); CALCIUM 9.3 MG/DL (8.5-10.1); CARBON DIOXIDE 28 MMOL/L (21-32); CHLORIDE 103 MMOL/L (98-107); CREATININE 1.7 MG/DL (0.55-1.30); POTASSIUM 4.1 MMOL/L (3.5-5.1); SODIUM 145 MMOL/L (136-145)
[2020-01-13 19:14] LABS: ALANINE AMINOTRANSFERASE 111 U/L (12-78); ALBUMIN 4.2 G/DL (3.4-5.0); ALBUMIN/GLOBULIN RATIO 0.9 (1.0-2.7); ALKALINE PHOSPHATASE 93 U/L (46-116); ASPARTATE AMINO TRANSFERASE 77 U/L (15-37); BILIRUBIN,TOTAL 0.6 MG/DL (0.2-1.0)
[2020-01-13 19:33] VITALS: BP 168/99
[2020-01-13 22:00] VITALS: BP 168/110
[2020-01-14] VITALS (11 sets, daily range): BP systolic 154–179; BP diastolic 80–100
[2020-01-14] MEDS: HYDROmorphone 1mg/ml Carpuject IVP PRN ×3 (00:02→16:45)
[2020-01-14 06:17] LABS: BASOPHILS % (AUTO) 1.6 % (0.0-2.0); EOSINOPHILS % (AUTO) 2.4 % (0.0-3.0); HEMATOCRIT 51.6 % (42.0-52.0); HEMOGLOBIN 15.5 G/DL (14.2-18.0); LYMPHOCYTES % (AUTO) 25.5 % (20.0-45.0); MEAN CORPUSCULAR VOLUME 92 FL (80-99); MONOCYTES % (AUTO) 16.5 % (1.0-10.0); PLATELET COUNT 162 K/UL (150-450); RED BLOOD COUNT 5.64 M/UL (4.70-6.10); RED CELL DISTRIBUTION WIDTH 16.3 % (11.6-14.8); WHITE BLOOD COUNT 5.2 K/UL (4.8-10.8)
[2020-01-14 08:06] LABS: BLOOD UREA NITROGEN 21 mg/dL (7-18); CARBON DIOXIDE 26 MMOL/L (21-32); CHLORIDE 105 MMOL/L (98-107); CREATININE 1.4 MG/DL (0.55-1.30)
[2020-01-14 08:45] LABS: SODIUM 145 MMOL/L (136-145)
--- NOTE | 2020-01-14 11:18 | Pre-Procedure Note/Attestation ---
Pre-Procedure Note/Attestation Complete Prior to Procedure Planned Procedure: not applicable Procedure Narrative: egd Indications for Procedure Pre-Operative Diagnosis: foreign body Attestation I attest that I discussed the nature of the procedure; its benefits; risks and complications; and alternatives (and the risks and benefits of such alternatives ), prior to the procedure, with the patient (or the patient's legal sales representative public utilities). I attest that, if there was a reasonable possibility of needing a blood transfusion, the patient (or the patient's legal sales representative public utilities) was given the [facility] standardized written summary, pursuant to the [place] Blood Safety Act ([place] Health and Safety Code # 1645, as amended). I attest that I re-evaluated the patient just prior to the surgery and that there has been no change in the patient's H&P, except as documented below: Roberto Mckeon MD Jan 14, 2020 11:18
--- NOTE | 2020-01-14 12:23 | Short Stay Surgery H&P ---
History of Present Illness History of Present Illness Chief Complaint food impaction HPI Leonard Hastings is a 59 year old male who was admitted on Jan 13, 2020 at 21:38 for Distal Esophageal Obstruction Patient History Allergies: Coded Allergies: LISINOPRIL (Verified Allergy, Unknown, 09/25/18) PAST MEDICAL HISTORY: (1) HTN (hypertension) (2) Esophageal obstruction due to food impaction (3) Asthma Medication History Scheduled Albuterol Sulfate* (Albuterol Sulfate Mdi*), 2 PUFF INH Q3H Albuterol Sulfate* (Albuterol Sulfate Mdi*), 2 PUFF INH Q4H Amlodipine Besylate* (Amlodipine Besylate*), Unknown Dose ORAL DAILY, (Reported) Aspirin* (Aspir 81*), 81 MG ORAL DAILY, (Reported) Atorvastatin Calcium* (Atorvastatin Calcium*), Unknown Dose ORAL BEDTIME, ( Reported) Azithromycin* (Zithromax*), 250 MG ORAL DAILY Bacitracin (Bacitracin), 1 APPLIC TOPIC BID Calcium Carbonate (Tums), Unknown Dose PO NEEDED, (Reported) Guaifenesin (Guaifenesin), 1,200 MG PO Q12HR Guaifenesin/Dextromethorphan (Robitussin Cough-Chest Dm Liq), 5 ML PO Q6HR Hydrochlorothiazide* (Hydrochlorothiazide*), 25 MG ORAL DAILY, (Reported) Levofloxacin* (Levaquin*), 500 MG ORAL DAILY Losartan Potassium* (Losartan Potassium*), 50 MG ORAL DAILY, (Reported) Losartan Potassium* (Losartan Potassium*), 25 MG ORAL DAILY, (Reported) Losartan Potassium* (Losartan Potassium*), 10 MG ORAL DAILY, (Reported) Metformin Hcl* (Metformin Hcl*), 500 MG ORAL BID, (Reported) Pantoprazole* (Protonix*), 40 MG ORAL DAILY, (Reported) Trimethoprim/Sulfamethoxazole (Bactrim Ds Tablet), 1 TAB ORAL TWICE A DAY Scheduled PRN Acetaminophen With Codeine (T#3) (Tylenol #3 Tab*), 1 TAB ORAL Q4H PRN Albuterol Sulfate* (Albuterol Sulfate Hhn*), 3 ML INH Q6H PRN for Shortness of Breath Codeine/Promethazine Hcl* (Promethazine-Codeine Syrup*), 5 ML ORAL QHS PRN for For Cough Codeine/Promethazine Hcl* (Promethazine-Codeine Syrup*), 5 ML ORAL Q6H PRN for For Cough Codeine/Promethazine Hcl* (Promethazine-Codeine Syrup*), 5 ML ORAL Q6H PRN for For Cough Hydrocodone Bit/Acetaminophen 5-325* (Shirley 5-325*), 1 TAB ORAL Q4H PRN for For Pain Tramadol Hcl* (Ultram*), 50 MG ORAL Q6H PRN for For Pain Miscellaneous Medications Unable to Obtain Medications (Unable To Obtain Meds), (Reported) Unable to Obtain Medications (Unable To Obtain Meds), (Reported) Review of Systems Cardiovascular: Reports: no symptoms Respiratory: Reports: no symptoms Skeletal: Reports: no symptoms Gastrointestinal: Reports: see HPI Genitourinary: Reports: no symptoms Neurologic: Reports: no symptoms Endocrine: Reports: no symptoms Physical Exam Vital Signs Last Vital Signs Date Time Temp Pulse Resp B/P (MAP) Pulse Ox O2 Delivery O2 Flow Rate FiO2 01/14/20 08:00 98.2 68 18 154/80 (104) 97 01/13/20 22:13 Room Air Labs Laboratory Tests Test 01/13/20 18:46 01/14/20 05:40 White Blood Count 7.2 K/UL (4.8-10.8) 5.2 K/UL (4.8-10.8) Red Blood Count 5.82 M/UL (4.70-6.10) 5.64 M/UL (4.70-6.10) Hemoglobin 15.7 G/DL (14.2-18.0) 15.5 G/DL (14.2-18.0) Hematocrit 51.8 % (42.0-52.0) 51.6 % (42.0-52.0) Mean Corpuscular Volume 89 FL (80-99) 92 FL (80-99) Mean Corpuscular Hemoglobin 27.1 PG (27.0-31.0) 27.5 PG (27.0-31.0) Mean Corpuscular Hemoglobin Concent 30.4 G/DL (32.0-36.0) L 30.1 G/DL (32.0-36.0) L Red Cell Distribution Width 16.4 % (11.6-14.8) H 16.3 % (11.6-14.8) H Platelet Count 191 K/UL (150-450) 162 K/UL (150-450) Mean Platelet Volume 8.3 FL (6.5-10.1) 8.1 FL (6.5-10.1) Neutrophils (%) (Auto) 61.0 % (45.0-75.0) 54.0 % (45.0-75.0) Lymphocytes (%) (Auto) 22.7 % (20.0-45.0) 25.5 % (20.0-45.0) Monocytes (%) (Auto) 12.2 % (1.0-10.0) H 16.5 % (1.0-10.0) H Eosinophils (%) (Auto) 2.3 % (0.0-3.0) 2.4 % (0.0-3.0) Basophils (%) (Auto) 1.8 % (0.0-2.0) 1.6 % (0.0-2.0) Sodium Level 145 MMOL/L (136-145) 145 MMOL/L (136-145) Potassium Level 4.1 MMOL/L (3.5-5.1) 4.0 MMOL/L (3.5-5.1) Chloride Level 103 MMOL/L (98-107) 105 MMOL/L (98-107) Carbon Dioxide Level 28 MMOL/L (21-32) 26 MMOL/L (21-32) Anion Gap 14 mmol/L (5-15) Blood Urea Nitrogen 22 mg/dL (7-18) H 21 mg/dL (7-18) H Creatinine 1.7 MG/DL (0.55-1.30) H 1.4 MG/DL (0.55-1.30) H Estimat Glomerular Filtration Rate 50.3 mL/min (>60) > 60 mL/min (>60) Glucose Level 105 MG/DL (74-106) 96 MG/DL (74-106) Calcium Level 9.3 MG/DL (8.5-10.1) 9.0 MG/DL (8.5-10.1) Total Bilirubin 0.6 MG/DL (0.2-1.0) Aspartate Amino Transf (AST/SGOT) 77 U/L (15-37) H Alanine Aminotransferase (ALT/SGPT) 111 U/L (12-78) H Alkaline Phosphatase 93 U/L (46-116) Total Protein 9.1 G/DL (6.4-8.2) H Albumin 4.2 G/DL (3.4-5.0) Globulin 4.9 g/dL Albumin/Globulin Ratio 0.9 (1.0-2.7) L Skin: normal HENT: normal Heart: normal Lungs: normal Abdomen: normal Extremities: normal Plan Plan of Care egd Attestation Are the patient's medical conditions optimized for surgery? Attestation Response: yes Roberto Mckeon MD Jan 14, 2020 12:23
--- NOTE | 2020-01-14 12:45 | Endoscopy Procedure Note ---
Endoscopy Procedure Note General Indication for Procedure: fodd impaction Procedures Performed: EGD Operative Findings/Diagnosis: same Specimen: yes Pt Tolerated Procedure Well: Yes Estimated Blood Loss: none Anesthesia Anesthesiologist: maida Anesthesia: MAC Inserted Devices Implant(s) used?: No GI Core Measures 50 yrs or older w/o bx or poly: Not Applicable 10yrs. F/U recommended: Not Applicable Roberto Mckeon MD Jan 14, 2020 12:45
--- NOTE | 2020-01-14 12:55 | Immediate Post-Op Evaluation ---
Immediate Post-Op Evalulation Immediate Post-Op Evalulation Procedure: EGD Date of Evaluation: Jan 14, 2020 Time of Evaluation: 12:55 IV Fluids: 300 Blood Pressure Systolic: 158 Blood Pressure Diastolic: 60 Pulse Rate: 54 Respiratory Rate: 14 O2 Sat by Pulse Oximetry: 98 Temperature (Fahrenheit): 97.5 Nausea: No Vomiting: No Complications none Patient Status: awake, reacts, patent Hydration Status: adequate Drug: none Sahara Mcdonald CRNA Jan 14, 2020 12:55
--- NOTE | 2020-01-14 12:57 | Anethesia Preoperative Eval ---
Anesthesia Pre-op PMH/ROS General Date of Evaluation: Jan 14, 2020 Time of Evaluation: 12:22 Anesthesiologist: bacilio ASA Score: ASA 3 Mallampati Score Class I : Soft palate, uvula, fauces, pillars visible Class II: Soft palate, uvula, fauces visible Class III: Soft palate, base of uvula visible Class IV: Only hard plate visible Mallampati Classification: Class III Surgeon: shanna Diagnosis: food impaction Surgical Procedure: EGD Anesthesia History: none Family History: no anesthesia problems Allergies: Coded Allergies: LISINOPRIL (Verified Allergy, Unknown, 09/25/18) Medications: see eMAR Patient NPO?: Yes NPO Date: Jan 14, 2020 NPO Time: 00:01 Past Medical History Cardiovascular: Reports: HTN, CAD Pulmonary: Reports: COPD; Denies: asthma, HORACIO, other Gastrointestinal/Genitourinary: Reports: GERD; Denies: CRI, ESRD, other Neurologic/Psychiatric: Reports: CVA; Denies: dementia, depression/anxiety, TIA, other Endocrine: Reports: DM; Denies: hypothyroidism, steroids, other HEENT: Denies: cataract (L), cataract (R), glaucoma, MINTO (L), MINTO (R), other Hematology/Immune: Denies: anemia, DVT, bleeding disorder, other Anesthesia Pre-op Phys. Exam Physician Exam Last Vital Signs Date Time Temp Pulse Resp B/P (MAP) Pulse Ox O2 Delivery O2 Flow Rate FiO2 01/14/20 08:00 98.2 68 18 154/80 (104) 97 01/13/20 22:13 Room Air Constitutional: NAD Neurologic: CN 2-12 intact Cardiovascular: RRR Respiratory: CTA Gastrointestinal: S/NT/ND Airway Exam Mallampati Classification 2 Mallampati Score: Class II MO: full ROM: full Anesthesia Pre-op A/P Labs Hematology Test 01/13/20 18:46 01/14/20 05:40 White Blood Count 7.2 K/UL (4.8-10.8) 5.2 K/UL (4.8-10.8) Red Blood Count 5.82 M/UL (4.70-6.10) 5.64 M/UL (4.70-6.10) Hemoglobin 15.7 G/DL (14.2-18.0) 15.5 G/DL (14.2-18.0) Hematocrit 51.8 % (42.0-52.0) 51.6 % (42.0-52.0) Mean Corpuscular Volume 89 FL (80-99) 92 FL (80-99) Mean Corpuscular Hemoglobin 27.1 PG (27.0-31.0) 27.5 PG (27.0-31.0) Mean Corpuscular Hemoglobin Concent 30.4 G/DL (32.0-36.0) L 30.1 G/DL (32.0-36.0) L Red Cell Distribution Width 16.4 % (11.6-14.8) H 16.3 % (11.6-14.8) H Platelet Count 191 K/UL (150-450) 162 K/UL (150-450) Mean Platelet Volume 8.3 FL (6.5-10.1) 8.1 FL (6.5-10.1) Neutrophils (%) (Auto) 61.0 % (45.0-75.0) 54.0 % (45.0-75.0) Lymphocytes (%) (Auto) 22.7 % (20.0-45.0) 25.5 % (20.0-45.0) Monocytes (%) (Auto) 12.2 % (1.0-10.0) H 16.5 % (1.0-10.0) H Eosinophils (%) (Auto) 2.3 % (0.0-3.0) 2.4 % (0.0-3.0) Basophils (%) (Auto) 1.8 % (0.0-2.0) 1.6 % (0.0-2.0) Chemistry Test 01/13/20 18:46 01/14/20 05:40 Sodium Level 145 MMOL/L (136-145) 145 MMOL/L (136-145) Potassium Level 4.1 MMOL/L (3.5-5.1) 4.0 MMOL/L (3.5-5.1) Chloride Level 103 MMOL/L (98-107) 105 MMOL/L (98-107) Carbon Dioxide Level 28 MMOL/L (21-32) 26 MMOL/L (21-32) Anion Gap 14 mmol/L (5-15) Blood Urea Nitrogen 22 mg/dL (7-18) H 21 mg/dL (7-18) H Creatinine 1.7 MG/DL (0.55-1.30) H 1.4 MG/DL (0.55-1.30) H Estimat Glomerular Filtration Rate 50.3 mL/min (>60) > 60 mL/min (>60) Glucose Level 105 MG/DL (74-106) 96 MG/DL (74-106) Calcium Level 9.3 MG/DL (8.5-10.1) 9.0 MG/DL (8.5-10.1) Total Bilirubin 0.6 MG/DL (0.2-1.0) Aspartate Amino Transf (AST/SGOT) 77 U/L (15-37) H Alanine Aminotransferase (ALT/SGPT) 111 U/L (12-78) H Alkaline Phosphatase 93 U/L (46-116) Total Protein 9.1 G/DL (6.4-8.2) H Albumin 4.2 G/DL (3.4-5.0) Globulin 4.9 g/dL Albumin/Globulin Ratio 0.9 (1.0-2.7) L Studies Pre-op Studies: EKG - SR Risk Assessment & Plan Assessment: denies changes in health Plan: mac Status Change Before Surgery: No Pre-Antibiotics Drug: none Sahara Mcdonald CRNA Jan 14, 2020 12:57
[2020-01-14] MEDS ORDERED: PROZAC20 MG ORAL (14:05)
[2020-01-14] MEDS ORDERED: NORVASC5 MG ORAL (14:05)
[2020-01-14] MEDS ORDERED: Losartan 50mg tab ORAL SCH (14:15)
--- NOTE | 2020-01-14 14:45 | History and Physical Report ---
DATE OF ADMISSION: 01/13/2020 HISTORY OF PRESENT ILLNESS: This is a 59-year-old male with previous history of CVA. 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 Since then, the patient has recovered. He has dysphagia and has difficulty swallowing large boluses. He presented to the hospital yesterday complaining of difficulty with swallowing after he ate some chicken. He believes this was stuck in his throat, in the past he was able to expectorate, but he was unable to at this point in time. He is admitted to the hospital after imaging study confirmed esophageal obstruction. Per review of the CT, upper esophagus contains food debris and fluid at the level of the aortic arch. REVIEW OF SYSTEMS: Denies any headaches, hematemesis, melena, hematochezia, night sweats, or weight loss. PAST MEDICAL HISTORY: Previous CVA, previous tracheostomy now removed, previous G-tube now removed, hypertension, COPD, and peripheral neuropathy. HOME MEDICATIONS: Reviewed and reconciled in the chart. PHYSICAL EXAMINATION: GENERAL: Reveals a pleasant male. VITAL SIGNS: Blood pressure 150/80, heart rate 64, respirations . He is afebrile. HEENT: Unremarkable. LUNGS: Clear breath sounds bilaterally. ABDOMEN: Soft. EXTREMITIES: There is no edema. NEUROLOGIC: Nonfocal. SKIN: There is old tracheostomy scar and old G-tube scar. EXTREMITIES: There is no edema. LABORATORY DATA: Lab testing at this time has been unremarkable with normal CBC and BMP, creatinine 1.4. Rapid COVID testing is negative. IMPRESSION: 1. Esophageal obstruction. 2. Previous CVA. 3. Hypertension. 4. Previous tracheostomy. 5. Previous G-tube. DISCUSSION: Admit to the hospital. The patient needs an urgent endoscopy to remove stool obstruction. I have cleared him for the procedure. We will follow carefully. Angelo Cerda M.D. DR: TERESA JOB#: [id number] CC:
--- NOTE | 2020-01-14 16:45 | Procedure Note ---
DATE OF PROCEDURE: 01/14/2020 SURGEON: Roberto Mckeon MD. PROCEDURE: Upper endoscopy with food disimpaction and biopsy. ANESTHESIA: Per FLIGHT FOLLOWER, Sahara Tarrillion. INSTRUMENT: Olympus adult flexible upper endoscope. INDICATION: Food impaction. REASON FOR PROCEDURE: The procedure, risks, benefits, and possible consequences, including hemorrhage, aspiration, perforation and infection, and alternative treatments, were explained to the patient/legal guardian by Dr. Roberto Mckeon and the patient/legal guardian understood and accepted these risks. DESCRIPTION OF PROCEDURE: After informed consent was obtained and patient was adequately sedated, Olympus upper endoscope was advanced from mouth into the esophagus. There was evidence of food impaction about 25 cm from the incisors. Using the scope, we gently pushed the food material from the esophagus into the stomach. The patient has evidence of a small hiatal hernia. The patient had prior PEG site, which was closed asthma. The patient had some gastritis, which was biopsied. At this time, the upper endoscope was retrieved and procedure was terminated. SUMMARY OF FINDINGS: 1. Food impaction in the esophagus at about 25 cm. We passed it with the scope into the stomach. 2. Small hiatal hernia. 3. Gastritis, status biopsy. RECOMMENDATIONS: Follow up biopsy results and treat accordingly. I want to thank Dr. Cerda for this kind referral. Roberto Mckeon M.D. DR: LUCINA JOB#: [id number] CC: Angelo Cerda M.D.; Fax#: [phone]
--- NOTE | 2020-01-15 11:18 | Discharge Summary ---
Discharge Summary Discharge Summary _ DATE OF ADMISSION: 01/13/2020 DATE OF DISCHARGE: 01/14/2020 DISCHARGED BY: Dr. Cerda REASON FOR ADMISSION: 59 years old male with past medical history of CVA, prior tracheostomy , currently removed , prior G-tube , currently removed , hypertension , COPD, peripheral neuropathy , presented with dysphagia and difficulty swallowing while eating chicken. He believed something stuck in his throat , which he was unable to expectorate. CT scan of the neck revealed no acute abnormality in the soft tissue of the neck. However , upper esophagus within the chest contained some food debris's and fluid approximately the level of the aortic arch. CT scan of the chest abdomen and pelvis revealed unremarkable lung bases : no mass , no consolidation. Urinary bladder wall thickening. Gallbladder sludge without findings to suggest acute cholecystitis. Prominent colonic stool burden , otherwise no acute abnormality. Laboratory work-up revealed no leukocytosis. Rapid COVID-19 testing was negative. Patient subsequently admitted for further management due to esophageal obstruction. CONSULTANTS: GI specialist Dr. Mckeon [facility] COURSE: Patient admitted to the hospital. GI specialist consulted for urgent endoscopy to remove esophageal obstruction due to food impaction. Patient subsequently undergone upper endoscopy with food disimpaction and biopsy. GI specialist was able to pass with the scope impacted food into the stomach. Small hiatal hernia noted. Gastritis noted, status post biopsy. Patient started on diet with aspiration precaution . Home medication continued. Patient was able to tolerate diet and was stable for discharge. Due to rapid and unexpected improvement in patient condition , patient was discharged in 1 day. FINAL DIAGNOSES: Esophageal obstruction due to food impaction s/p EGD with food disimpaction History of CVA Hypertension History of tracheostomy History of G-tube DISCHARGE MEDICATIONS: See Medication Reconciliation list. DISCHARGE INSTRUCTIONS: Patient was discharged home. Outpatient follow-up with a primary care provider in 1 week. I have been assigned to dictate discharge summary for this account. I was not involved in the patient's management. Bri Sorensen NP Jan 15, 2020 11:18
[2020-01-16 07:39] VITALS: BP 160/90
--- NOTE | 2020-01-16 07:39 | 48 Hour Post Anesthesia Eval ---
Post Anesthesia Evaluation Procedure: EGD Date of Evaluation: Jan 16, 2020 Time of Evaluation: 07:39 Blood Pressure Systolic: 160 0: 90 Pulse Rate: 54 Respiratory Rate: 14 O2 Sat by Pulse Oximetry: 98 Nausea: No Vomiting: No Hydration Status: adequate Cardiopulmonary Status: stable Mental Status/LOC: patient returned to baseline Post-Anesthesia Complications: none Follow-up care needed: N/A Sahara Mcdonald CRNA Jan 16, 2020 07:39
== END 2020-01-14 20:00 | disposition home or self-care (01) | DRG 243 ==
LOC: EMR 14:20 → EDBEDREQ 21:38 → 3E 21:38 → EDBEDREQ 21:49
PROC: 0DC38ZZ Extirpation of Matter from Lower Esophagus, Via Natural or Artificial Opening Endoscopic (ICD-10-PCS; principal; 2020-01-13)
PROC: 0DB68ZX Excision of Stomach, Via Natural or Artificial Opening Endoscopic, Diagnostic (ICD-10-PCS; 2020-01-13)
DX: K22.2 Esophageal obstruction (principal); I10 Essential (primary) hypertension; K29.70 Gastritis, unspecified, without bleeding; K44.9 Diaphragmatic hernia without obstruction or gangrene; Z86.73 Personal history of transient ischemic attack (TIA), and cerebral infarction without residual deficits; J44.9 Chronic obstructive pulmonary disease, unspecified; R13.10 Dysphagia, unspecified
CPT/HCPCS: 36415; 70490; 71250; 74176; 80048; 80053; 85025; 94003; 94150; 96360; 99285; J2405; J7030; U0002